=== PATIENT | female | born 1965 | race Two or more races ===

== ENCOUNTER 2017-10-05 08:56 | Emergency (ER) | payer MEDICAID ==
[~2017-10-05] VITALS: Ht 160 cm; Wt 86.2 kg
[2017-10-05 09:02] VITALS: BP 132/84
[2017-10-05] MEDS ORDERED: LIDOCAINE700 M1 TP (09:16)
[2017-10-05] MEDS ORDERED: IBUPROFEN600 MG ORAL (09:16)
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
== END 2017-10-05 10:05 | disposition home or self-care (01) ==
LOC: EMR 09:38
DX: M54.16 Radiculopathy, lumbar region (principal)
CPT/HCPCS: 99283

== ENCOUNTER 2017-11-30 08:47 | Emergency (ER) | payer MEDICAID ==
[~2017-11-30] VITALS: Ht 167.6 cm; Wt 86.2 kg
[~2017-11-30 08:47] MED LIST: IBUPROFEN600 MG ORAL; LIDOCAINE700 M1 TP
[2017-11-30 09:02] VITALS: BP 157/89
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
[2017-11-30] MEDS ORDERED: Ketorolac 60mg Inj IM ONE (09:30)
--- NOTE | 2017-11-30 10:45 | Diagnostic Imaging Report ---
Indication: Lower back pain Technique: CT of the spine utilizing automated exposure control without intravenous contrast. Axial, sagittal and coronal reformats presented. CT dose: Total DLP 578.32 mGycm; CTDI vol 20.23 mGy Comparison: None Findings: There are 5 nonrib-bearing lumbar-type vertebral bodies, assuming 12 paired ribs. There is no evidence of acute fracture. Vertebral body heights are maintained. No evidence of vertebral compression fracture. There is mild degenerative change of the lumbar spine with small disc bulges in the lower lumbar spine. No significant bony central canal stenosis or bony foraminal narrowing. Please note that the central canal, disks and nerve roots are better evaluated on MRI, which can be obtained for more sensitive evaluation as clinically indicated. Abdominal aorta is normal in caliber. A punctate stone is noted in the upper pole of the right kidney. No evidence to suggest hydronephrosis. IMPRESSION: * No evidence of acute fracture or traumatic malalignment. * Overall mild degenerative change of the lumbar spine. * Partially visualized punctate nonobstructing stone in the upper pole the right kidney. The CT scanner at [facility] is accredited by the [employer] and the scans are performed using protocols designed to limit radiation exposure to as low as reasonably achievable to attain images of sufficient resolution adequate for diagnostic evaluation. Facial
[2017-11-30] MEDS ORDERED: IBUPROFEN600 MG ORAL (11:16)
[2017-11-30] MEDS ORDERED: NORCO 5-325 TA1 EACH ORAL (11:16)
[2017-11-30 11:21] VITALS: BP 140/78
--- NOTE | 2017-11-30 12:07 | Diagnostic Imaging Report ---
Indication: Knee pain Technique: XRAY Knee 3v LT Comparison: None Findings: Bone mineralization appears within normal limits. There is no evidence of acute fracture or dislocation. There is very mild degenerative change with some lateral compartment joint space narrowing and small marginal osteophyte. A small quadriceps tendon enthesophyte is also noted. No suprapatellar joint effusion. No radiopaque foreign body. Impression: No evidence of acute fracture or dislocation.
== END 2017-11-30 11:24 | disposition home or self-care (01) ==
LOC: EMR 09:15
DX: M54.16 Radiculopathy, lumbar region (principal); M25.562 Pain in left knee
CPT/HCPCS: 72131; 96372; 99284

== ENCOUNTER 2018-03-05 09:01 | Emergency (ER) | payer MEDICAID ==
[~2018-03-05] VITALS: Ht 162.6 cm; Wt 88.0 kg
[~2018-03-05 09:01] MED LIST changes: +NORCO 5-325 TA1 EACH ORAL
[2018-03-05] MEDS ORDERED: CEPHALEXIN500 M1 ORAL (09:17)
[2018-03-05] MEDS ORDERED: BACTRIM DS TAB1 EAC1 ORAL (09:17)
[2018-03-05] MEDS ORDERED: NAPROXEN500 M2 ORAL (09:17)
[2018-03-05 09:22] VITALS: BP 113/64
[2018-03-05 10:43] VITALS: BP 120/71
--- NOTE | 2018-03-05 12:53 | Emergency Room Report ---
History of Present Illness General Chief Complaint: Skin Rash/Abscess Source: Patient Present Illness HPI 52-year-old female for evaluation. Patient states she has a "cyst" on her neck and on her upper back. Has been there for several months. But states the one on the back got infected recently and is getting bigger. Was seen at a clinic and was placed on antibiotics 2 days ago. States it is not helping. Pain is throbbing, 8 out of 10, nonradiating. Denies fevers or chills. Denies any discharge. No other aggravating relieving factors. Denies any other associated symptoms Allergies: Coded Allergies: No Known Allergies (Unverified , 11/30/17) Patient History Past Medical History: none Past Surgical History: none Pertinent Family History: none Social History: Denies: smoking, alcohol use, drug use Now: No Immunizations: UTD Reviewed Nursing Documentation: PMH: Agreed; PSxH: Agreed Nursing Documentation-PMH Past Medical History: No History, Except For Review of Systems All Other Systems: negative except mentioned in HPI Physical Exam Vital Signs Date Time Temp Pulse Resp B/P (MAP) Pulse Ox O2 Delivery O2 Flow Rate FiO2 03/05/18 09:10 98.2 84 18 115/67 98 Room Air Sp02 EP Interpretation: reviewed, normal General Appearance: no apparent distress, alert, GCS 15, non-toxic Head: normocephalic Eyes: bilateral eye normal inspection, bilateral eye PERRL ENT: normal ENT inspection Neck: normal inspection Respiratory: normal inspection Cardiovascular #1: normal inspection Gastrointestinal: normal inspection Rectal: deferred Genitourinary: normal inspection Musculoskeletal: normal inspection Neurologic: alert, oriented x3, responsive, motor strength/tone normal, sensory intact, speech normal Psychiatric: normal inspection Skin: other - 1cm cyst on posterior neck. nonindurated/ nonerythematous. 4cm abscess on L upper back. induration/erythema. no discharge Lymphatic: normal inspection Procedures Incision and Drainage Incision and Drainage : Consent: Verbal Blade Size: 11 I & D Procedure: betadine prep, sterile drapes applied, sterile dressing applied Wound Location: back - upper back Wound's Depth, Shape: other - abscess Wound Explored: purulent discharged expressed Anesthesia: 1% Lidocaine Splint Applied?: No Sling Applied?: No Patient Tolerated: Well Complications: None Medical Decision Making Diagnostic Impression: Primary Impression: Abscess ER Course Hospital Course 52-year-old F presents to ED with cyst on neck, abscess on uppper back Clinical course Patient placed on stretcher. After initial history, physical exam reveals middle-aged female in no acute distress. On exam there is a 1 cm cyst on the posterior neck. Nonindurated, nonerythematous. No fluctuance. There is a larger infected abscess on the left upper back. aproximately 4 cm. + erythema and induration. Discussed findings with patient. Cyst on the neck has been there for months, not infected. Can be addressed as outpatient. We will drain the abscess on her upper back however. Placed in prone position. Sterile dressing applied. No signs of lidocaine. Using scalpel I made an incision and using forceps I was able to break up loculations and purulent discharge was expressed. Patient tolerated procedure without complication. Pressure dressing applied. Explained to patient that she should continue her antibiotics. Follow-up with PMD. I will provide her with clinic referrals Diagnosis - abscess Stable and discharged to home. continue abx as prescribed. warm compresses. wound Care instructions given. Followup with PMD. Return to ED if any signs of infection develop Last Vital Signs Date Time Temp Pulse Resp B/P (MAP) Pulse Ox O2 Delivery O2 Flow Rate FiO2 03/05/18 10:43 98.3 82 18 120/71 99 Room Air Status: improved Disposition: HOME, SELF-CARE Condition: Stable Referrals: NON PHYSICIAN (PCP) [facility] Patient Instructions: Abscess Additional Instructions: continue antibiotics as directed. warm compresses. followup with PMD. Tono Oconnell MD Mar 05, 2018 12:53
== END 2018-03-05 10:46 | disposition home or self-care (01) ==
LOC: EMR 09:58
DX: L02.212 Cutaneous abscess of back [any part, except buttock and flank] (principal)
CPT/HCPCS: 10060; 99283

== ENCOUNTER 2018-03-19 19:18 | Emergency (ER) | payer MEDICAID ==
[~2018-03-19] VITALS: Ht 167.6 cm; Wt 86.2 kg
[~2018-03-19 19:18] MED LIST changes: +BACTRIM DS TAB1 EAC1 ORAL; +CEPHALEXIN500 M1 ORAL; +NAPROXEN500 M2 ORAL
[2018-03-19 19:31] VITALS: BP 116/73
[2018-03-19] MEDS ORDERED: Norco 5mg/325mg tab ORAL ONE (19:45)
[2018-03-19] MEDS ORDERED: Methocarbamol 500mg tab ORAL ONE (19:45)
--- NOTE | 2018-03-19 19:46 | Emergency Room Report ---
History of Present Illness General Chief Complaint: Lower Back Pain or Injury Source: Patient Present Illness HPI 52-year-old female patient presents the ER complaining of low back pain since today. Reports pain is radiating down her left side to her left knee. Reports history of similar symptoms in the past, states has had pain symptoms like this for the past year. Patient previously seen in the ER for similar symptoms. Reports has had imaging done previously at that time, states has not had MRI. Reports followed up with primary care provider was given Tylenol and ibuprofen. Reports pain symptoms worsened today. Denies acute injury or trauma. Denies bowel or bladder incontinence. Denies fever, chest pain, shortness of breath, abdominal pain. Denies history of spine surgery. Denies dysuria, hematuria. Denies vaginal discharge. was driven to the ER by her son. Allergies: Coded Allergies: No Known Allergies (Unverified , 11/30/17) Patient History Past Medical History: see triage record Last Menstrual Period: 02/22/18 Reviewed Nursing Documentation: PMH: Agreed; PSxH: Agreed Nursing Documentation-PMH Past Medical History: No History, Except For Review of Systems All Other Systems: negative except mentioned in HPI Physical Exam Vital Signs Date Time Temp Pulse Resp B/P (MAP) Pulse Ox O2 Delivery O2 Flow Rate FiO2 03/19/18 19:29 98.6 91 23 116/73 96 Room Air Sp02 EP Interpretation: reviewed, normal General Appearance: well appearing, no apparent distress, alert, GCS 15, non- toxic Head: normocephalic, atraumatic Eyes: bilateral eye normal inspection, bilateral eye PERRL ENT: hearing grossly normal, normal pharynx, no angioedema, normal voice, uvula midline, moist mucus membranes Neck: full range of motion Respiratory: lungs clear, normal breath sounds, no rhonchi, no respiratory distress, no accessory muscle use, no wheezing, speaking full sentences Cardiovascular #1: regular rate, rhythm, no edema Gastrointestinal: non tender, soft, no mass, non-distended, no guarding, no rebound Genitourinary: no CVA tenderness Musculoskeletal: back normal, digits/nails normal, gait/station normal, normal range of motion, tender - Lumbosacral Neurologic: alert, oriented x3, responsive, motor strength/tone normal, sensory intact, other - Straight leg left positive Psychiatric: mood/affect normal Skin: no rash Medical Decision Making PA Attestation Dr. Oconnell is my supervising Physician whom patient management has been discussed with. Diagnostic Impression: Primary Impression: Acute exacerbation of chronic low back pain ER Course Pt presents to ED c/o back pain. DDX considered but are not limited to sprain, strain, cauda equina, epidural abscess, AAA, spinal cord compression, kidney stones, chronic pain. Low suspicion for cauda equina, no bowel or bladder incontinence or retention. No fever, nontoxic appearing, no radiation of pain, low suspicion for epidural mass. No abdominal pain, no blood pressure elevation, nontoxic appearing, low suspicion for AAA. VITAL SIGNS are WNL, patient is afebrile Ordered pain medication. ER COURSE: [place] pain medication provided. CURES reviewed. Informed patient would not discharge her home with opioid pain medication, stronger pain medication must come from primary care provider who she is currently receiving treatment for recurrent back pain symptoms. No recent injury or trauma, does not require imaging at this time. Reviewed previous imaging showing degenerative changes and bulging discs, likely causing pain symptoms. Continue taking Tylenol and ibuprofen for relief of pain symptoms. Followup with pain management and/or PT. Request referral from PCP. Followup with PCP for further MRI and/or CT imaging as needed. ER precautions given. DISCHARGE: -Rx provided for Lidocaine patch -Rx provided for Robaxin. SE may cause drowsiness, do not take prior to drinking , driving, or operating heavy machinery. At this time pt. is stable for d/c to home. At this time patient is resting comfortably, in no acute distress, nontoxic appearing, smiling and talking without difficulty. Will provide printed patient care instructions, and any necessary prescriptions. Patient instructed to follow with primary care provider for further treatment and referral as needed. Care plan and follow up instructions have been discussed with the patient prior to discharge. Patient reports understanding and agreement to treatment plan. Patient questions asked and answered. ER precautions given, patient instructed to return to ER immediately for any new or worsening of symptoms. - Please note that this Emergency Department Report was dictated using [email or web address] technology software, occasionally this can lead to erroneous entry secondary to interpretation by the dictation equipment. Last Vital Signs Date Time Temp Pulse Resp B/P (MAP) Pulse Ox O2 Delivery O2 Flow Rate FiO2 03/19/18 19:29 98.6 91 23 116/73 96 Room Air Status: improved Disposition: HOME, SELF-CARE Condition: Stable Scripts Methocarbamol* (ROBAXIN*) 500 Mg Tablet 500 MG PO TID, #21 TAB 0 Refills Prov: Ashkan Ford 03/19/18 Lidocaine (Lidocaine) 1 Each Adh..patch 5 % TP DAILY for 7 Days, #7 PATCH Prov: Ashkan Ford 03/19/18 Patient Instructions: Back Pain, Adult, Chronic Back Pain Additional Instructions: Patient instructed to follow up with primary care provider 3-5 and discuss further referral to ortho/PT/pain management and MRI imaging at that time. Discuss need for stronger pain medication for acute exacerbation of chronic pain. Patient instructed on rest, ice and heat. Do not take muscle relaxant prior to drinking, driving, or operating heavy machinery. Take medications as directed. Patient questions asked and answered. ER precautions given, patient instructed to return to ER immediately for any new or worsening of symptoms. [facility] [address] [facility] [address] [facility], [id number] [email or web address] Ashkan Ford Mar 19, 2018 19:46
[2018-03-19] MEDS ORDERED: LIDOCAINE700 M1 TP (19:54)
[2018-03-19] MEDS ORDERED: ROBAXIN500 MG PO (19:54)
[2018-03-19 20:12] VITALS: BP 114/72
== END 2018-03-19 20:12 | disposition home or self-care (01) ==
LOC: EMR 19:53
DX: M54.5 Low back pain (principal); G89.29 Other chronic pain
CPT/HCPCS: 99282

== ENCOUNTER 2018-06-24 08:38 | Emergency (ER) | payer MEDICAID ==
[~2018-06-24] VITALS: Ht 167.6 cm; Wt 86.2 kg
[~2018-06-24 08:38] MED LIST changes: +ROBAXIN500 MG PO
[2018-06-24] MEDS ORDERED: NKM (08:46)
--- NOTE | 2018-06-24 08:57 | NUR ---
ED Nurse Note: PT WALKED IN TO ER TODAY FROM HOME. AOX4. PT C/O LOWER BACK PAIN AND HEADACHE, PAIN 8/10 X 3 WEEKS AGO. PT DENIES ANY RECENT INJURY OR TRAUMA. PT DENIES NUMBNESS OR TINGLING. PT DENIES DIZZINESS. GAIT STEADY IN ER.
[2018-06-24 08:58] VITALS: BP 126/76
--- NOTE | 2018-06-24 09:52 | Emergency Room Report ---
History of Present Illness General Chief Complaint: Headache Source: Patient Present Illness HPI This is patient states that she has had low back pain for the past 3 weeks. She states that this is the same back pain that she usually gets. She has been evaluated and undergone a CT of her low back. She primarily sees the emergency department. However, she states that she is going to see her primary care physician on the of this month. She states she is out of her pain medications that she received here in the emergency department. She states she still continues to have pain. She states at times it radiates down her left leg. She he denies weakness. She denies tingling or numbness. She denies loss of bowel or bladder control. She states she is very uncomfortable. Although there is some report of a headache in the medical record, the patient did not complain of this to me. The patient has no other complaints. Allergies: Coded Allergies: No Known Allergies (Unverified , 06/24/18) Patient History Past Medical History: see triage record, other - anemia Social History: Denies: smoking, alcohol use, drug use Last Menstrual Period: menopause Reviewed Nursing Documentation: PMH: Agreed; PSxH: Agreed Nursing Documentation-PMH Past Medical History: No History, Except For Review of Systems All Other Systems: negative except mentioned in HPI Physical Exam Vital Signs Date Time Temp Pulse Resp B/P (MAP) Pulse Ox O2 Delivery O2 Flow Rate FiO2 06/24/18 08:41 99.0 81 16 131/81 94 Room Air Sp02 EP Interpretation: reviewed, normal General Appearance: no apparent distress, alert, GCS 15, non-toxic Head: normocephalic, atraumatic Eyes: bilateral eye normal inspection, bilateral eye PERRL ENT: hearing grossly normal, normal pharynx, no angioedema, normal voice Respiratory: chest non-tender, lungs clear, normal breath sounds, no respiratory distress, no retraction, no accessory muscle use, speaking full sentences Cardiovascular #1: regular rate, rhythm, no edema Rectal: deferred Musculoskeletal: gait/station normal, normal range of motion, tender - TTP along the paraspinal m. of the lumbar spine. Neurologic: alert, oriented x3, responsive, motor strength/tone normal, sensory intact, speech normal Psychiatric: judgement/insight normal, memory normal, mood/affect normal, no suicidal/homicidal ideation Skin: normal color, no rash, warm/dry, well hydrated Medical Decision Making Diagnostic Impression: Primary Impression: Lumbar back pain with radiculopathy affecting left lower extremity ER Course This patient has a clinical presentation consistent with mechanical back pain. There are no red flags on physical exam. The patient denies any concerning features such as trauma, fevers, night sweats, history of malignancy, pain worse at night, IV drug abuse, urinary/fecal incontinence or retention, focal weakness or change in sensation, or refractory pain. Given these pertinent negatives in the history and physical exam an emergent cause of the back pain such as epidural abscess, metastasis to bone, cauda equina syndrome, and fracture is less likely. I also doubt emergent cardiovascular cause of back pain such as aortic dissection a ruptured abdominal aortic aneurysm given patient with equal pulses in all 4 extremities with no diastolic murmur or pulsatile abdominal mass. The patient was counseled that, though unlikely, the possibility of an emergent cause of back pain may still be present and that the patient should return immediately if symptoms persist or worsen. The symptoms are reproducible with movement. Patient had a benign evaluation and neurologic examination. No emergency etiology was identified. Last Vital Signs Date Time Temp Pulse Resp B/P (MAP) Pulse Ox O2 Delivery O2 Flow Rate FiO2 06/24/18 08:58 98.7 76 18 126/76 98 Room Air Status: improved Disposition: HOME, SELF-CARE Condition: Improved Farideh Remy DO Jun 24, 2018 09:52
[2018-06-24] MEDS ORDERED: ACETAMINOPHEN-1 EAC1 ORAL (09:55)
[2018-06-24] MEDS ORDERED: IBUPROFEN800 MG ORAL (09:55)
[2018-06-24] MEDS ORDERED: GABAPENTIN300 MG ORAL (09:55)
[2018-06-24] MEDS ORDERED: CYCLOBENZAPRINE10 MG ORAL (09:55)
[2018-06-24] MEDS ORDERED: Cyclobenzaprine 10mg Tab ORAL ONE (10:00)
[2018-06-24] MEDS ORDERED: Ketorolac 60mg Inj IM ONE (10:00)
[2018-06-24 10:04] VITALS: BP 126/76
--- NOTE | 2018-06-24 10:05 | NUR ---
ER DISCHARGE NOTE: Patient is cleared to be discharged per ERMD, pt is aox4, on room air, with stable vital signs. pt was given dc and prescription instructions, pt was able to verbalize understanding, pt id band removed. pt is able to ambulate with steady gait. pt took all belongings.
== END 2018-06-24 10:06 | disposition home or self-care (01) ==
LOC: EMR 09:55
DX: M54.5 Low back pain (principal); M54.16 Radiculopathy, lumbar region
CPT/HCPCS: 96372; 99283

== ENCOUNTER 2018-08-25 08:24 | Emergency (ER) | payer MEDICAID ==
[~2018-08-25] VITALS: Ht 167.6 cm; Wt 86.2 kg
[~2018-08-25 08:24] MED LIST changes: +ACETAMINOPHEN-1 EAC1 ORAL; +CYCLOBENZAPRINE10 MG ORAL; +GABAPENTIN300 MG ORAL; +IBUPROFEN800 MG ORAL; +NKM
[2018-08-25 08:34] VITALS: BP 124/78
[2018-08-25 09:46] VITALS: BP 124/78
--- NOTE | 2018-08-25 11:47 | Emergency Room Report ---
History of Present Illness General Chief Complaint: Pain Source: Patient Present Illness HPI Patient presents with complaints of lower back pain mainly localized to the left lower back however patient also complains of bilateral back pain at times she also reports that there is radiation From the left lower back into the left lateral leg She reports intermittently her right leg also feels weak Denies any saddle paresthesia patient reports a remote history of a fall with imaging previously She reports that she has discussed this with her primary physician and requesting MRI however has not been successful patient appears to have also had a hysterectomy Denies any vomiting or diarrhea denies any fevers or chills denies any focal weakness at this time Allergies: Coded Allergies: No Known Allergies (Unverified , 06/24/18) Patient History Past Medical History: see triage record Pertinent Family History: none Now: No Reviewed Nursing Documentation: PMH: Agreed; PSxH: Agreed Nursing Documentation-PMH Past Medical History: No Stated History Review of Systems All Other Systems: negative except mentioned in HPI Physical Exam Vital Signs Date Time Temp Pulse Resp B/P (MAP) Pulse Ox O2 Delivery O2 Flow Rate FiO2 08/25/18 08:27 98.2 90 19 124/78 (93) 96 Room Air Sp02 EP Interpretation: reviewed, normal General Appearance: well appearing, no apparent distress Head: normocephalic, atraumatic Eyes: bilateral eye PERRL, bilateral eye EOMI ENT: hearing grossly normal, normal pharynx, TMs + canals normal, uvula midline Neck: full range of motion, supple, no meningismus, no bony tend Respiratory: lungs clear, normal breath sounds, no rhonchi, no respiratory distress, no retraction, no accessory muscle use Cardiovascular #1: normal peripheral pulses, regular rate, rhythm, no edema, no gallop, no JVD, no murmur Gastrointestinal: normal bowel sounds, non tender, soft, no mass, no organomegaly, non-distended, no guarding, no hernia, no pulsatile mass, no rebound Genitourinary: no CVA tenderness Musculoskeletal: other - Discomfort on palpation of the left posterior superior iliac crest region no midline step-off flexion-extension of both feet intact sensory intact Neurologic: oriented x3, responsive, 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 Additional Impression: sciatica ER Course Multiple differentials including but not limited to neurological, neurosurgical , muscular skeletal pathology entertained Patient does not show signs of cauda equina or other emergent pathology at this time She is requesting if we can provide her referral for MRI this was Reemphasized to her primary physician through the discharge papers And patient requires improved outpatient care Last Vital Signs Date Time Temp Pulse Resp B/P (MAP) Pulse Ox O2 Delivery O2 Flow Rate FiO2 08/25/18 09:46 98.2 90 19 124/78 96 Room Air Status: unchanged Disposition: HOME, SELF-CARE Condition: Stable Departure Forms: Return to Work Return to Work in (Days): 2 Return to Work Date: Aug 27, 2018 Patient Instructions: Sciatica, [id number], Lumbosacral Radiculopathy Additional Instructions: Patient will benefit from outpatient MRI. Patient reports ongoing progressive worsening of her symptoms, please provide patient with referral through your services for neurology follow-up including MRI examination. Patient is provided with the discharge instructions notified to follow up with primary doctor in the next 2-3 days otherwise return to the er with any worsening symptoms. Please note that this report is being documented using [employer] technology. This can lead to erroneous entry secondary to incorrect interpretation by the dictating instrument. Kentrell Ying DO Aug 25, 2018 11:47
== END 2018-08-25 09:48 | disposition home or self-care (01) ==
LOC: EMR 08:35
DX: M54.42 Lumbago with sciatica, left side (principal); M54.16 Radiculopathy, lumbar region
CPT/HCPCS: 99282

== ENCOUNTER 2019-03-14 10:49 | Emergency (ER) | payer MEDICAID ==
[~2019-03-14] VITALS: Ht 167.6 cm; Wt 86.2 kg
--- NOTE | 2019-03-14 11:00 | NUR ---
ED Nurse Note: PT walked in to ED for C/O pain to back and bilateral knee x 6 days. pt denies any trauma or injury.
[2019-03-14] MEDS ORDERED: Ketorolac 30mg Inj IM ONE (12:45)
--- NOTE | 2019-03-14 12:54 | Emergency Room Report ---
History of Present Illness General Chief Complaint: Lower Extremity Injury Source: Patient Present Illness HPI 53-year-old female presents to the emergency department complaining of 8 out of 10 severity low back pain with radiation down the right posterior thigh, as well as anterior bilateral knee pain x6 days. Patient reports history of injury in 2005 and states she has had chronic back pain ever since she reports that intermittently she will have episodes of exacerbation of her pain and required to take pain medication. Pt. reports that there is no change in character of her pain. She reports her PCP had Imaging done but never gave her the results. Patient reports last time she required stronger pain meds was earlier last year. Patient denies new trauma or fall she denies appreciable strenuous activities. Denies numbness tingling or loss of sensation or gross motor movements of the extremities, incontinence of bowel or bladder. Denies CP , Palpitations, LOC, AMS, dizziness, Changes in Vision, weakness or a sudden severe headache. She denies recent spinal procedures or history of cancer. Allergies: Coded Allergies: No Known Allergies (Unverified , 06/24/18) Patient History Past Medical History: see triage record Past Surgical History: none Pertinent Family History: none Last Menstrual Period: 3 YEARS Now: No Reviewed Nursing Documentation: PMH: Agreed; PSxH: Agreed Nursing Documentation-PMH Past Medical History: No History, Except For Review of Systems All Other Systems: negative except mentioned in HPI Physical Exam Vital Signs Date Time Temp Pulse Resp B/P (MAP) Pulse Ox O2 Delivery O2 Flow Rate FiO2 03/14/19 10:56 97.5 78 16 125/89 (101) 94 Room Air Sp02 EP Interpretation: reviewed, normal General Appearance: no apparent distress, alert, GCS 15, non-toxic Head: normocephalic, atraumatic Eyes: bilateral eye normal inspection, bilateral eye PERRL ENT: hearing grossly normal, normal voice Neck: full range of motion Respiratory: lungs clear, normal breath sounds, speaking full sentences Cardiovascular #1: regular rate, rhythm Genitourinary: normal inspection, no CVA tenderness Musculoskeletal: normal range of motion, gait/station normal, tender - TTP to the bilateral paraspinal musculature in the lumbar spine and in the right upper thoracic area. No midline spinous process ttp. No palpable step-offs or obvious deformities. , other - She is ambulatory without assistance. Neurologic: alert, motor strength/tone normal, distal neuro normal, oriented x3 , sensory intact, responsive, speech normal, no focal defects Psychiatric: judgement/insight normal Medical Decision Making PA Attestation Dr. Bradley is my supervising Physician whom patient management has been discussed with. Diagnostic Impression: Primary Impression: Radicular low back pain ER Course 53-year-old female presents to the emergency department complaining of 8 out of 10 severity low back pain with radiation down the right posterior thigh, as well as anterior bilateral knee pain x6 days. Patient reports history of injury in 2005 and states she has had chronic back pain ever since she reports that intermittently she will have episodes of exacerbation of her pain and required to take pain medication. Pt. reports that there is no change in character of her pain. She reports her PCP had Imaging done but never gave her the results. Patient reports last time she required stronger pain meds was earlier last year. Patient denies new trauma or fall she denies appreciable strenuous activities. Denies numbness tingling or loss of sensation or gross motor movements of the extremities, incontinence of bowel or bladder. Denies CP , Palpitations, LOC, AMS, dizziness, Changes in Vision, weakness or a sudden severe headache. She denies recent spinal procedures or history of cancer. Ddx considered: epidural abscess, fracture, sprain/strain, meningitis, spinal chord injury, sciatica, cauda equina, Pyelonephritis, renal calculi just to name a few. Vital signs reviewed and are WNL during ED visit. Pt. is afebrile with no signs of infection No new symptoms, and denies recent trauma. No saddle anesthesia noted, Pt. denies incontinence Neurovascular is intact ROM is limited due to pain * Mild Tenderness to palpation to paraspinal muscles of the lower back without midline tenderness. ORDERS: none warranted at this time. INTERVENTIONS: - 30mg IM Toradol D/W Pt. that for further pain management is it recommended to consult PCP or a Chronic Pain management doctor. A provider who can safely prescribe controlled substances with close follow up. DISCHARGE: At this time pt. is stable for d/c to home. Will provide printed patient care instructions, and any necessary prescriptions. Care plan and follow up instructions have been discussed with the patient prior to discharge. Last Vital Signs Date Time Temp Pulse Resp B/P (MAP) Pulse Ox O2 Delivery O2 Flow Rate FiO2 03/14/19 10:56 97.5 78 16 125/89 (101) 94 Room Air Disposition: HOME, SELF-CARE Condition: Stable Scripts Lidocaine Patch* (Lidoderm Patch*) 1 Each Adh..patch 1 PATCH TOPIC DAILY, #30 PATCH 0 Refills Patch(es) may remain in place for up to 12 hours in any 24-hour period. Prov: Lanny Garg 03/14/19 Tramadol Hcl* (ULTRAM*) 50 Mg Tablet 50 MG ORAL Q6H PRN for For Pain, #12 TAB 0 Refills Prov: Lanny Garg 03/14/19 Patient Instructions: Chronic Back Pain, Knee Pain, [id number] Additional Instructions: Take medications as directed. Follow up with an SPINAL AERONAUTICAL ENGINEERING TEACHER REFERRAL by your Primary care Doctor within 3-5 days, even if your symptoms have resolved. If symptoms persist MRI may be required at the discretion of your PCP or Ortho Specialist. --Please review list of primary care clinics, if you do not already have a primary care provider who can give you an Orthopedic Referral. Return sooner to ED if new symptoms occur, or current symptoms become worse. Do not drink alcohol, drive, or operate heavy machinery while taking Tramadol as this may cause drowsiness. - Please note that this Emergency Department Report was dictated using [employer] pouring supervisor technology software, occasionally this can lead to erroneous entry secondary to interpretation by the dictation equipment. Lanny Garg Mar 14, 2019 12:54
[2019-03-14] MEDS ORDERED: LIDODERM700 M1 TOPIC (12:56)
[2019-03-14] MEDS ORDERED: TRAMADOL HCL50 MG ORAL (12:56)
--- NOTE | 2019-03-14 13:09 | NUR ---
ER DISCHARGE NOTE: Patient is cleared to be discharged per ERMD, pt is aox4, on room air, with stable vital signs. pt was given dc and prescription instructions, pt was able to verbalize understanding, pt is able to ambulate with steady gait. pt took all belongings.
[2019-03-14 13:10] VITALS: BP 125/89
== END 2019-03-14 13:10 | disposition home or self-care (01) ==
LOC: EMR 12:00
DX: M54.5 Low back pain (principal); M79.651 Pain in right thigh; M25.562 Pain in left knee; M25.561 Pain in right knee
CPT/HCPCS: 96372; J1885; Z7502; 99283

== ENCOUNTER 2020-03-01 05:33 | Inpatient (IN) | payer MEDICAID ==
[2020-03-01] VITALS (7 sets, daily range): BP systolic 106–140; BP diastolic 60–78
[~2020-03-01] VITALS: Ht 167.6 cm; Wt 86.2 kg
[~2020-03-01 05:33] MED LIST changes: +LIDODERM700 M1 TOPIC; +TRAMADOL HCL50 MG ORAL
--- NOTE | 2020-03-01 05:44 | NUR ---
ED Nurse Note: Pt walked into ED from home c/o increased SOB with cough, fever for the past 6 days. Pt has loss of taste. Pt is AAOx4, tachypneic RR 28-30 on RA sats 86%, placed pt on 4L nc now sating 99%. Pt currently febrile in traige 102 oral, tachycardic 110s. Pt states she has not been COVID tested.
--- NOTE | 2020-03-01 06:04 | NUR ---
ED Nurse Note: blood and urine sent to lab
--- NOTE | 2020-03-01 06:08 | Emergency Room Report ---
History of Present Illness General Chief Complaint: Flu Like Symptoms Source: Patient Present Illness HPI Disclaimer: Please note that this report is being documented using [employer] technology. This can lead to erroneous entry secondary to incorrect interpretation by the dictating instrument. HPI: 54-year-old female presents for evaluation of shortness of breath and fever. Symptoms present 6 days. She reports nonproductive cough, body aches, fatigue fevers. Has been using Tylenol and Motrin with some effect. She is now diaphoretic and short of breath. She reports chest pain with cough only. Denies nausea or vomiting. Denies diarrhea. Denies nasal congestion or sore throat. No testing for COVID-19. Arrives hypoxic and tachycardic. Does not use inhalers and denies history of asthma or COPD. PMH: Denied PSH: Hysterectomy Allergies: Denied Social Hx: Non-smoker Allergies: Coded Allergies: No Known Allergies (Unverified , 06/24/18) COVID-19 Screening Contact w/high risk pt: No Experienced COVID-19 symptoms?: Yes COVID-19 Testing performed DEVOPS ARCHITECT: No Patient History Last Menstrual Period: n/a Nursing Documentation-PMH Past Medical History: No History, Except For Review of Systems All Other Systems: negative except mentioned in HPI Physical Exam Vital Signs Date Time Temp Pulse Resp B/P (MAP) Pulse Ox O2 Delivery O2 Flow Rate FiO2 03/01/20 05:39 102.0 118 18 127/73 (91) 88 Room Air General: Awake and alert, ill-appearing, febrile, diaphoretic HEENT: NC/AT. EOMI. Cardiovascular: Tachycardic S1 and S2 normal. No murmur appreciated Resp: Tachypnea. Intermittent cough. No wheezing. 86% room air Abdomen: Abdomen is soft, nondistended. Nontender Skin: Intact. No abrasions, laceration or rash over the exposed skin. Diaphoretic MSK: Normal tone and bulk. Moving all extremities. No obvious deformity. Neuro: Awake and alert. Mentating appropriately. Procedures Critical Care Time Critical Care Time Total critical care time: Approximately 45 minutes Due to a high probability of clinically significant, life threatening deterioration, the patient required the highest level of preparedness to intervene emergently and I personally spent this critical care time directly and personally managing the patient. This critical care time included obtaining a history, examining the patient, pulse oximetry, ordering and reviewing studies, ordering treatments, evaluating response to treatment and updating management plan as needed, frequent reassessment and discussion with other providers as well as arranging for ultimate disposition. This critical to care time was performed to assess and manage the high probability of life-threatening dete rioration that could result in multiorgan failure. This critical care time is separate from the separately billable procedures and treating other patients. Medical Decision Making Diagnostic Impression: Primary Impression: COVID-19 Additional Impressions: Pneumonia UTI (urinary tract infection) Sepsis ER Course Is a 54-year-old female presenting for evaluation of shortness of breath and flulike illness for the past 5 days. Concern for COVID-19, influenza, pneumonia, bronchitis, electrolyte abnormality, dehydration, ACS among others. Patient arrives tachypneic, tachycardic and hypoxic saturating 86% on room air during my evaluation. Now on 4L NC. Rapid test is returned positive for COVID- 19. Patient given Decadron. Chest x-ray shows bilateral hazy infiltrates consistent with COVID-19 pneumonia. Treated with ceftriaxone azithromycin. Blood culture sent. Patient receiving 30 cc/kg IV fluid bolus. Urinalysis concerning for urinary tract infection. Patient received ceftriaxone. Lactate within normal limits. Admitted to panel physician, Dr. Botello Sepsis reevaluation: I, Dr. Jovon Rea, reevaluated the patient Capillary refill: Less than 2 seconds MAP: 92 Heart rate: 118 Respiratory rate: 30 Initial Lactate: 1.3 Repeat Lactate: [] Pressors: Not indicated at this time No signs of fluid overload Laboratory Tests Test 03/01/20 05:50 White Blood Count 6.7 K/UL (4.8-10.8) Red Blood Count 4.67 M/UL (4.20-5.40) Hemoglobin 13.8 G/DL (12.0-16.0) Hematocrit 39.0 % (37.0-47.0) Mean Corpuscular Volume 83 FL (80-99) Mean Corpuscular Hemoglobin 29.5 PG (27.0-31.0) Mean Corpuscular Hemoglobin Concent 35.3 G/DL (32.0-36.0) Red Cell Distribution Width 14.0 % (11.6-14.8) Platelet Count 252 K/UL (150-450) Mean Platelet Volume 8.0 FL (6.5-10.1) Neutrophils (%) (Auto) 80.6 % (45.0-75.0) H Lymphocytes (%) (Auto) 14.3 % (20.0-45.0) L Monocytes (%) (Auto) 4.9 % (1.0-10.0) Eosinophils (%) (Auto) 0.0 % (0.0-3.0) Basophils (%) (Auto) 0.2 % (0.0-2.0) Prothrombin Time 11.4 SEC (9.30-11.50) Prothrombin Time INR 1.0 (0.9-1.1) Activated Partial Thromboplast Time 31 SEC (23-33) D-Dimer 0.47 mg/L FEU (0.00-0.49) Urine Color Yellow Urine Appearance Slightly cloudy Urine pH 7 (4.5-8.0) Urine Specific [place] 1.010 (1.005-1.035) Urine Protein 3+ (NEGATIVE) H Urine Glucose (UA) Negative (NEGATIVE) Urine Ketones 3+ (NEGATIVE) H Urine Blood 3+ (NEGATIVE) H Urine Nitrite Negative (NEGATIVE) Urine Bilirubin Negative (NEGATIVE) Urine Urobilinogen Normal MG/DL (0.0-1.0) Urine Leukocyte Esterase 1+ (NEGATIVE) H Urine RBC 5-10 /HPF (0 - 2) H Urine WBC 10-15 /HPF (0 - 2) H Urine Squamous Epithelial Cells Moderate /LPF (NONE/OCC) H Urine Bacteria Many /HPF (NONE) H Sodium Level 132 MMOL/L (136-145) L Potassium Level 3.6 MMOL/L (3.5-5.1) Chloride Level 98 MMOL/L (98-107) Carbon Dioxide Level 28 MMOL/L (21-32) Anion Gap 6 mmol/L (5-15) Blood Urea Nitrogen 9 mg/dL (7-18) Creatinine 0.7 MG/DL (0.55-1.30) Estimated Glomerular Filtration Rate > 60 mL/min (>60) Glucose Level 147 MG/DL (74-106) H Lactic Acid Level 1.30 mmol/L (0.4-2.0) Calcium Level 8.0 MG/DL (8.5-10.1) L Phosphorus Level 2.6 MG/DL (2.5-4.9) Magnesium Level 1.8 MG/DL (1.8-2.4) Ferritin 231 NG/ML (8-388) Total Bilirubin 0.5 MG/DL (0.2-1.0) Aspartate Amino Transferase (AST) 40 U/L (15-37) H Alanine Aminotransferase (ALT) 38 U/L (12-78) Alkaline Phosphatase 82 U/L (46-116) Lactate Dehydrogenase 391 U/L (81-234) H Total Creatine Kinase 162 U/L (26-308) Creatine Kinase MB < 0.5 NG/ML (0.0-3.6) Creatine Kinase MB Relative Index 0.3 Troponin I 0.000 ng/mL (0.000-0.056) C-Reactive Protein, Quantitative 19.8 mg/dL (0.00-0.90) H Pro-B-Type Natriuretic Peptide 23 pg/mL (0-125) Total Protein 8.1 G/DL (6.4-8.2) Albumin 3.1 G/DL (3.4-5.0) L Globulin 5.0 g/dL Albumin/Globulin Ratio 0.6 (1.0-2.7) L Lipase 124 U/L (73-393) Microbiology Date/Time Source Procedure Growth Status 03/01/20 05:50 Nasal Nares - Final Complete 03/01/20 05:50 Nasal Nares - Final Complete 03/01/20 05:50 Nasopharynx SARS-CoV-2 RdRp Gene Assay - Final Complete EKG Diagnostic Results Troponin ordered: Yes When was troponin ordered?: Mar 01, 2020 EKG Time: 06:20 Rate: tachycardiac Rhythm: NSR ST Segments: no acute changes Other Impression Sinus tachycardia, normal axis, normal intervals, QTC [address] segment changes. Rhythm Strip Diag. Results Rhythm Strip Time: 06:20 EP Interpretation: yes Rate: 106 Rhythm: NSR, no PVC's, no ectopy Chest X-Ray Diagnostic Results Chest X-Ray Diagnostic Results : Chest X-Ray Ordered: Yes # of Views/Limited/Complete: 1 View Indication: Shortness of Breath EP Interpretation: Yes Electronically Signed by: Electronically signed by Dr. Jovon Rea MD Last Vital Signs Date Time Temp Pulse Resp B/P (MAP) Pulse Ox O2 Delivery O2 Flow Rate FiO2 03/01/20 05:39 102.0 118 18 127/73 (91) 88 Room Air Disposition: ADMITTED INPATIENT Condition: Serious Referrals: NON PHYSICIAN (PCP) Jovon Rea MD Mar 01, 2020 06:08
--- NOTE | 2020-03-01 06:12 | NUR ---
ED Nurse Note: COVID swab sent to lab
[2020-03-01] MEDS ORDERED: dexAMETHasone 10mg/ml Inj IV ONE (06:15)
[2020-03-01] MEDS ORDERED: Acetaminophen 500mg (ES) tab ORAL ONE (06:15)
--- NOTE | 2020-03-01 06:23 | NUR ---
ED Nurse Note: flu swab sent to lab
[2020-03-01 06:25] LABS: BASOPHILS % (AUTO) 0.2 % (0.0-2.0); HEMOGLOBIN 13.8 G/DL (12.0-16.0); LYMPHOCYTES % (AUTO) 14.3 % (20.0-45.0); MEAN CORPUSCULAR VOLUME 83 FL (80-99); MONOCYTES % (AUTO) 4.9 % (1.0-10.0); NEUTROPHILS % (AUTO) 80.6 % (45.0-75.0); PLATELET COUNT 252 K/UL (150-450); RED BLOOD COUNT 4.67 M/UL (4.20-5.40); WHITE BLOOD COUNT 6.7 K/UL (4.8-10.8)
--- NOTE | 2020-03-01 06:25 | NUR ---
ED Nurse Note: soil conservation technician at bedside
[2020-03-01 06:35] LABS: ANION GAP 6 mmol/L (5-15); BLOOD UREA NITROGEN 9 mg/dL (7-18); CARBON DIOXIDE 28 MMOL/L (21-32); CHLORIDE 98 MMOL/L (98-107); CREATININE 0.7 MG/DL (0.55-1.30); POTASSIUM 3.6 MMOL/L (3.5-5.1); SODIUM 132 MMOL/L (136-145)
[2020-03-01] MEDS ORDERED: Azithromycin 500 MG in NS 275 ML IVPB ONE (06:45)
[2020-03-01] MEDS ORDERED: cefTRIAXone 1 GM in NS 55 ML IV ONE (06:45)
[2020-03-01] MEDS ORDERED: Sodium Chloride 2,600 ML IVLG ONE (06:45)
[2020-03-01 06:46] LABS: ALANINE AMINOTRANSFERASE 38 U/L (12-78); ALBUMIN 3.1 G/DL (3.4-5.0); ALBUMIN/GLOBULIN RATIO 0.6 (1.0-2.7); ALKALINE PHOSPHATASE 82 U/L (46-116); ASPARTATE AMINO TRANSFERASE 40 U/L (15-37); BILIRUBIN,TOTAL 0.5 MG/DL (0.2-1.0); CKMB < 0.5 NG/ML (0.0-3.6); CREATINE KINASE 162 U/L (26-308); FERRITIN 231 NG/ML (8-388); LACTATE DEHYDROGENASE 391 U/L (81-234); PHOSPHORUS 2.6 MG/DL (2.5-4.9)
[2020-03-01 06:47] LABS: BILIRUBIN, URINE NEGATIVE (NEGATIVE); GLUCOSE, URINE (UA) NEGATIVE (NEGATIVE); KETONES,URINE 3+ (NEGATIVE); LEUKOCYTE ESTERASE ,URINE 1+ (NEGATIVE); NITRITE,URINE NEGATIVE (NEGATIVE); PH,URINE 7 (4.5-8.0); PROTEIN,URINE 3+ (NEGATIVE); UROBILINOGEN,URINE NORMAL MG/DL (0.0-1.0)
--- NOTE | 2020-03-01 06:57 | NUR ---
ED Nurse Note: IV fluids and ABX administered. Pt in bed states feeling less SOB with 4L nC currently sating 100%, continues to be tachycardic 105-110, with fever 101.5.
[2020-03-01] MEDS ORDERED: ACETAMINOPHEN325 M1 ORAL (07:15)
--- NOTE | 2020-03-01 07:18 | NUR ---
HAND-OFF: Report given to Ms. Bekah RN. Placed new full oxygen tank for pt.
[2020-03-01 07:20] LABS: APPEARANCE,URINE SLIGHTLY CLOUDY; COLOR,URINE YELLOW
--- NOTE | 2020-03-01 08:00 | NUR ---
AWKE ALERT ORIENTED FEELS BETTER NOW IV FLUID INFUSING .CONTINUES TO BE ON O2
[2020-03-01] MEDS ORDERED: Albuterol/Ipratropium 3ml neb HHN PRN (08:15)
--- NOTE | 2020-03-01 09:12 | Diagnostic Imaging Report ---
Indication: Cough Technique: One view of the chest Comparison: none Findings: There are bilateral streaky and patchy infiltrates in a peribronchovascular distribution. The heart size is upper limits normal. Impression: Bilateral infiltrates, likely multifocal pneumonia, likely viral
--- NOTE | 2020-03-01 09:52 | NUR ---
REPOERT GIVEN TO BULMARO PATIENT IS TO BE TRANSFERD TO ROOM 402-2 VIA GURNEY AND O2
[2020-03-01] MEDS ORDERED: Miralax 17gm pkt ORAL PRN (10:00)
--- NOTE | 2020-03-01 10:30 | NUR ---
NURSE NOTES: REPORT RECEIVED FROM AUSTIN SAHA RN. PATIENT TRANSPORTED VIA GURNEY BY TRANSPORTATION. AOX4. NON-PRODUCTIVE COUGH PRESENT. BELONGINGS CHECKED AND ACCOUNTED FOR. PATIENT ORIENTED TO ROOM. BED IN LOW AND LOCKED POSITION. CALL LIGHT WITHIN REACH.. QUESTIONS ANSWERED, NEEDS MET. DISCUSSED PLAN OF CARE FOR THE DAY. VERBALIZED UNDERSTANDING. WILL CONTINUE TO MONITOR.
--- NOTE | 2020-03-01 10:42 | Consultation ---
History of Present Illness General Date patient seen: Mar 01, 2020 Time patient seen: 10:39 Chief Complaint: Flu Like Symptoms Referring physician: PCP Reason for Consultation: COVID+ Present Illness HPI 54yo F who p/w SOB, COVID + for which ID is consulted Pt AF in house, HDS on 4L NC, labs wnl, CXR w/ BL pna. Pt is feeling OK, just some SOB No allergies to abx Allergies: Coded Allergies: No Known Allergies (Unverified , 06/24/18) Medication History Scheduled Ibuprofen* (Motrin*), 800 MG ORAL THREE TIMES A DAY Methocarbamol* (Robaxin*), 500 MG PO TID No Known Medications* (NKM - No Known Medications*), 0 ., (Reported) Scheduled PRN Acetaminophen* (Acetaminophen 325MG Tablet*), 650 MG ORAL Q4H PRN for For Pain, (Reported) Ibuprofen (Motrin), 600 MG ORAL Q8H PRN for For Pain Ibuprofen (Motrin), 600 MG ORAL Q8H PRN for For Pain Discontinued Medications Acetaminophen With Codeine (T#3) (Tylenol #3 Tab*), 1 TAB ORAL Q4H PRN for For Pain Discontinued Reason: Pt stopped taking med Cephalexin* (Keflex*), 500 MG ORAL EVERY 6 HOURS, (Reported) Discontinued Reason: Pt stopped taking med Cyclobenzaprine Hcl* (Flexeril*), 10 MG ORAL THREE TIMES A DAY Discontinued Reason: Pt stopped taking med Gabapentin* (Gabapentin*), 300 MG ORAL BEDTIME Discontinued Reason: Pt stopped taking med Hydrocodone Bit/Acetaminophen 5-325* ([place] 5-325*), 1 TAB ORAL Q6H PRN for For Pain Discontinued Reason: Pt stopped taking med Lidocaine (Lidocaine), 5 % TP ONCE Discontinued Reason: Pt stopped taking med Lidocaine (Lidocaine), 5 % TP DAILY Discontinued Reason: Pt stopped taking med Lidocaine Patch* (Lidoderm Patch*), 1 PATCH TOPIC DAILY Discontinued Reason: Pt stopped taking med Naproxen* (Naproxen*), 500 MG ORAL TWICE A DAY, (Reported) Discontinued Reason: Pt stopped taking med Tramadol Hcl* (Ultram*), 50 MG ORAL Q6H PRN for For Pain Discontinued Reason: Pt stopped taking med Trimethoprim/Sulfamethoxazole 160/800* (Bactrim Ds Tablet*), 1 TAB ORAL DAILY, (Reported) Discontinued Reason: Pt stopped taking med Patient History Healthcare decision maker Resuscitation status Advanced Directive on File Review of Systems ROS Narrative 10-point neg except as noted in HPI Physical Exam Physical Exam Narrative Gen: NAD HEENT: NCAT on NC Pulm: BL chest rise on NC Abd: Soft, NTND Ext: No c/c/e Neuro: Awake, interactive Last 24 Hour Vital Signs Date Time Temp Pulse Resp B/P (MAP) Pulse Ox O2 Delivery O2 Flow Rate FiO2 03/01/20 10:30 98.1 103 18 131/68 (89) 98 03/01/20 10:09 98.4 98 2 116/70 98 Nasal Cannula 2.0 03/01/20 09:41 98.4 98 2 116/70 98 Nasal Cannula 2.0 03/01/20 07:19 101.5 101 24 128/72 100 Nasal Cannula 4.0 03/01/20 06:43 101.5 03/01/20 05:44 112 30 03/01/20 05:44 102.2 112 30 140/76 100 Nasal Cannula 4.0 03/01/20 05:39 102.0 118 18 127/73 (91) 88 Room Air Intake and Output 02/29/20 03/01/20 19:00 07:00 # Voids 1 Laboratory Tests Test 03/01/20 05:50 White Blood Count 6.7 K/UL (4.8-10.8) Red Blood Count 4.67 M/UL (4.20-5.40) Hemoglobin 13.8 G/DL (12.0-16.0) Hematocrit 39.0 % (37.0-47.0) Mean Corpuscular Volume 83 FL (80-99) Mean Corpuscular Hemoglobin 29.5 PG (27.0-31.0) Mean Corpuscular Hemoglobin Concent 35.3 G/DL (32.0-36.0) Red Cell Distribution Width 14.0 % (11.6-14.8) Platelet Count 252 K/UL (150-450) Mean Platelet Volume 8.0 FL (6.5-10.1) Neutrophils (%) (Auto) 80.6 % (45.0-75.0) H Lymphocytes (%) (Auto) 14.3 % (20.0-45.0) L Monocytes (%) (Auto) 4.9 % (1.0-10.0) Eosinophils (%) (Auto) 0.0 % (0.0-3.0) Basophils (%) (Auto) 0.2 % (0.0-2.0) Prothrombin Time 11.4 SEC (9.30-11.50) Prothromb Time International Ratio 1.0 (0.9-1.1) Activated Partial Thromboplast Time 31 SEC (23-33) D-Dimer 0.47 mg/L FEU (0.00-0.49) Urine Color Yellow Urine Appearance Slightly cloudy Urine pH 7 (4.5-8.0) Urine Specific [place] 1.010 (1.005-1.035) Urine Protein 3+ (NEGATIVE) H Urine Glucose (UA) Negative (NEGATIVE) Urine Ketones 3+ (NEGATIVE) H Urine Blood 3+ (NEGATIVE) H Urine Nitrite Negative (NEGATIVE) Urine Bilirubin Negative (NEGATIVE) Urine Urobilinogen Normal MG/DL (0.0-1.0) Urine Leukocyte Esterase 1+ (NEGATIVE) H Urine RBC 5-10 /HPF (0 - 2) H Urine WBC 10-15 /HPF (0 - 2) H Urine Squamous Epithelial Cells Moderate /LPF (NONE/OCC) H Urine Bacteria Many /HPF (NONE) H Sodium Level 132 MMOL/L (136-145) L Potassium Level 3.6 MMOL/L (3.5-5.1) Chloride Level 98 MMOL/L (98-107) Carbon Dioxide Level 28 MMOL/L (21-32) Anion Gap 6 mmol/L (5-15) Blood Urea Nitrogen 9 mg/dL (7-18) Creatinine 0.7 MG/DL (0.55-1.30) Estimat Glomerular Filtration Rate > 60 mL/min (>60) Glucose Level 147 MG/DL (74-106) H Lactic Acid Level 1.30 mmol/L (0.4-2.0) Calcium Level 8.0 MG/DL (8.5-10.1) L Phosphorus Level 2.6 MG/DL (2.5-4.9) Magnesium Level 1.8 MG/DL (1.8-2.4) Ferritin 231 NG/ML (8-388) Total Bilirubin 0.5 MG/DL (0.2-1.0) Aspartate Amino Transf (AST/SGOT) 40 U/L (15-37) H Alanine Aminotransferase (ALT/SGPT) 38 U/L (12-78) Alkaline Phosphatase 82 U/L (46-116) Lactate Dehydrogenase 391 U/L (81-234) H Total Creatine Kinase 162 U/L (26-308) Creatine Kinase MB < 0.5 NG/ML (0.0-3.6) Creatine Kinase MB Relative Index 0.3 Troponin I 0.000 ng/mL (0.000-0.056) C-Reactive Protein, Quantitative 19.8 mg/dL (0.00-0.90) H Pro-B-Type Natriuretic Peptide 23 pg/mL (0-125) Total Protein 8.1 G/DL (6.4-8.2) Albumin 3.1 G/DL (3.4-5.0) L Globulin 5.0 g/dL Albumin/Globulin Ratio 0.6 (1.0-2.7) L Lipase 124 U/L (73-393) Microbiology Date/Time Source Procedure Growth Status 03/01/20 05:50 Nasal Nares - Final Complete 03/01/20 05:50 Nasal Nares - Final Complete 03/01/20 05:50 Nasopharynx SARS-CoV-2 RdRp Gene Assay - Final Complete Height (Feet): 5 Height (Inches): 6.00 Weight (Pounds): 190 Medications Current Medications Medications (Trade) Dose Ordered Sig/Inge Route PRN Reason Start Time Stop Time Status Last Admin Dose Admin Acetaminophen (Tylenol) 650 mg Q4H PRN ORAL FEVER 03/01/20 10:00 03/31/20 09:59 Albuterol/ Ipratropium (Combivent Respimat) 1 puff Q6H PRN INH Shortness of Breath 03/01/20 10:00 03/31/20 09:59 Azithromycin 250 mg/Dextrose 275 ml @ 275 mls/hr Q24HRS IV 03/02/20 09:00 03/07/20 08:59 Ceftriaxone Sodium 1 gm/ Dextrose 55 ml @ 110 mls/hr Q24H IVPB 03/02/20 08:00 03/09/20 07:59 Dexamethasone (Decadron) 6 mg DAILY ORAL 03/02/20 09:00 03/10/20 09:01 Dextrose (Dextrose 50%) 25 ml Q30M PRN IV Hypoglycemia 03/01/20 10:00 05/30/20 09:59 Dextrose (Dextrose 50%) 50 ml Q30M PRN IV Hypoglycemia 03/01/20 10:00 05/30/20 09:59 Heparin Sodium (Porcine) (Heparin 5000 units/ml) 5,000 units EVERY 12 HOURS SUBQ 03/01/20 10:30 04/15/20 10:29 Ondansetron HCl (Zofran) 4 mg Q6H PRN IVP Nausea & Vomiting 03/01/20 10:00 03/31/20 09:59 Polyethylene Glycol (Miralax) 17 gm DAILYPRN PRN ORAL Constipation 03/01/20 10:00 03/31/20 09:59 Promethazine HCl/ Codeine (Phenergan with Codeine) 5 ml Q6H PRN ORAL cough 03/01/20 10:00 03/31/20 09:59 Assessment/Plan Assessment/Plan: 54yo F who p/w: COVID pna Acute hypoxia 2/2 COVID Normal WBC Lymphopenia Febrile to 102.2 03/01 COVID+ BCx p UA 10-15 WBC, UCx p Resp cx p CXR: BL pna Flu neg Plan: Start RDV #1/5 Cont dex 6mg daily #1/10 Cont CTX/azithro #1/5 Monitor CBC/CMP Monitor resp status Monitor temp curve, hemodynamics D/w RN and Dr. Argueta Thank you for this consult. [facility] will continue to follow. Nohemi Marcelino M.D. Mar 01, 2020 10:42
[2020-03-01] MEDS: Heparin 5000 units/ml inj SUBQ SCH ×2 (12:21→20:40)
[2020-03-01] MEDS ORDERED: Loading Dose:Remdesivir 200mg/NS 210ml IV SCH ×2 (14:00)
[2020-03-01] MEDS: Promethazine/Codeine 5ml UD ORAL PRN (14:16)
--- NOTE | 2020-03-01 15:02 | History & Physical ---
History and Physical History & Physicial Issa Botello MD Mar 01, 2020 15:02
--- NOTE | 2020-03-01 16:11 | NUR ---
NURSE NOTES: 1ST DOSE REMDESIVIR PATIENT REMAINS STABLE. PHENERGAN GIVEN FOR COUGH. NON-PRODUCTIVE COUGH SUBSIDING. TOLERATING 1ST DOSE OF REMDESIVIR. VSS. AFEBRILE.
--- NOTE | 2020-03-01 19:05 | NUR ---
NURSE NOTES: Received report from MELANIE Bansal. AAO x 4, on NC2L. No labored breathing. Denies pain or discomfort. Ambulatory. IV site intact and patent. Bed locked, lowest position, alarm on, side rails up, call light within reach. Will continue to monitor.
--- NOTE | 2020-03-01 19:25 | NUR ---
NURSE HAND-OFF: Important Events on Shift:1 ST DOSE OF REMDESIVIR Patient Status: STABLE Diet: REGULAR Pending Orders: N./A Pending Results/Labs:N/A Pending MD notification:N/A Latest Vital Signs: Temperature 98.4 , Pulse 88 , B/P 119 /67 , Respiratory Rate 18 , O2 SAT 95 , Nasal Cannula, O2 Flow Rate 3.0 . Vital Sign Comment: N/A Latest Darling Fall Score: 35 Fall Risk: Medium Risk Safety Measures: Call light Within Reach, Bed Alarm , Side Rails Side Rails x2, Bed position Low and Locked. Fall Precautions: Door Sign Patient Fall Education Report given to NILO NAVARRO.
[2020-03-02] VITALS: BP 115/66
[2020-03-02 04:00] VITALS: BP 127/86
[2020-03-02] MEDS: Promethazine/Codeine 5ml UD ORAL PRN ×2 (04:48→17:12)
[2020-03-02 05:59] LABS: BASOPHILS % (AUTO) 0.2 % (0.0-2.0); HEMATOCRIT 38.9 % (37.0-47.0); HEMOGLOBIN 13.1 G/DL (12.0-16.0); LYMPHOCYTES % (AUTO) 11.3 % (20.0-45.0); MEAN CORPUSCULAR VOLUME 88 FL (80-99); MONOCYTES % (AUTO) 5.5 % (1.0-10.0); PLATELET COUNT 280 K/UL (150-450); RED BLOOD COUNT 4.43 M/UL (4.20-5.40); RED CELL DISTRIBUTION WIDTH 13.8 % (11.6-14.8); WHITE BLOOD COUNT 7.3 K/UL (4.8-10.8)
--- NOTE | 2020-03-02 06:21 | NUR ---
NURSE HAND-OFF: Important Events on Shift: Patient Status: stable Diet: reg Pending Orders: Pending Results/Labs:am labs Pending MD notification: Latest Vital Signs: Temperature 97.3 , Pulse 95 , B/P 127 /86 , Respiratory Rate 18 , O2 SAT 92 , Nasal Cannula, O2 Flow Rate 2.0 . Vital Sign Comment: [] Latest Darling Fall Score: 35 Fall Risk: Medium Risk Safety Measures: Call light Within Reach, Bed Alarm Zone 1, Side Rails Side Rails x2, Bed position Low and Locked. Fall Precautions: Yeimi Cabrera Patient Fall Education Addendum: 03/02/20 at 0726 by NILO WATERMAN RN RN HAND-OFF: Report given to
[2020-03-02 06:50] LABS: ALANINE AMINOTRANSFERASE 40 U/L (12-78); ALBUMIN 2.8 G/DL (3.4-5.0); ALBUMIN/GLOBULIN RATIO 0.5 (1.0-2.7); ALKALINE PHOSPHATASE 77 U/L (46-116); ANION GAP 9 mmol/L (5-15); ASPARTATE AMINO TRANSFERASE 39 U/L (15-37); BILIRUBIN,TOTAL 0.4 MG/DL (0.2-1.0); BLOOD UREA NITROGEN 13 mg/dL (7-18); CALCIUM 8.8 MG/DL (8.5-10.1); CARBON DIOXIDE 27 MMOL/L (21-32); CHLORIDE 104 MMOL/L (98-107); CREATININE 0.6 MG/DL (0.55-1.30); PHOSPHORUS 3.5 MG/DL (2.5-4.9); POTASSIUM 3.7 MMOL/L (3.5-5.1); SODIUM 140 MMOL/L (136-145)
--- NOTE | 2020-03-02 07:46 | NUR ---
NURSE NOTES: Patient alert x4; on Nasal Cannula 3 Liters, no sign of distress and shortness of breath; no sing of chest pain; IV LAC flushes well; side rails up x2, breaks engaged, bed at lowest position, breaks engaged; call light within reach; will keep monitoring.
[2020-03-02 08:00] VITALS: BP 125/81
[2020-03-02] MEDS: cefTRIAXone 1 GM in D5W 55 ML IVPB SCH (09:26)
[2020-03-02] MEDS: Heparin 5000 units/ml inj SUBQ SCH ×2 (09:27→20:05)
[2020-03-02] MEDS: Azithromycin 250 MG in D5W 275 ML IV SCH (10:35)
[2020-03-02 12:00] VITALS: BP 121/65
--- NOTE | 2020-03-02 13:20 | Pulmonology Progress Note ---
Subjective ROS Limited/Unobtainable: No Constitutional: Reports: no symptoms HEENT: Repors: no symptoms Respiratory: Reports: no symptoms Allergies: Coded Allergies: No Known Allergies (Unverified , 06/24/18) Objective Last 24 Hour Vital Signs Date Time Temp Pulse Resp B/P (MAP) Pulse Ox O2 Delivery O2 Flow Rate FiO2 03/02/20 12:00 98.3 84 18 121/65 (83) 92 03/02/20 09:00 Nasal Cannula 2.0 03/02/20 08:00 98.2 93 18 125/81 (96) 93 03/02/20 04:00 97.3 95 18 127/86 (100) 92 03/02/20 00:00 97.7 82 20 115/66 (82) 93 03/01/20 21:00 Nasal Cannula 2.0 03/01/20 20:00 97.3 84 20 106/60 (75) 92 03/01/20 16:00 98.4 88 18 119/67 (84) 95 Intake and Output 0 03/01/20 03/02/20 19:00 07:00 Intake Total 785 ml Balance 785 ml Intake Oral 480 ml IV Total 305 ml # Voids 2 2 General Appearance: WD/WN HEENT: normocephalic, atraumatic Respiratory: chest wall non-tender, lungs clear Breasts: no masses Cardiovascular: normal peripheral pulses, normal rate Abdomen: normal bowel sounds, soft, non tender Genitourinary: normal external genitalia Extremities: no cyanosis Skin: no rash Microbiology Date/Time Source Procedure Growth Status 03/01/20 05:50 Urine,Clean Catch Urine Culture - Preliminary Gram Negative Oleg Resulted 03/01/20 05:50 Nasal Nares - Final Complete 03/01/20 05:50 Nasal Nares - Final Complete 03/01/20 05:50 Nasopharynx SARS-CoV-2 RdRp Gene Assay - Final Complete Laboratory Tests 03/02/20 04:00: White Blood Count 7.3, Red Blood Count 4.43, Hemoglobin 13.1, Hematocrit 38.9, Mean Corpuscular Volume 88, Mean Corpuscular Hemoglobin 29.5, Mean Corpuscular Hemoglobin Concent 33.7, Red Cell Distribution Width 13.8, Platelet Count 280, Mean Platelet Volume 7.6, Neutrophils (%) (Auto) 83.0H, Lymphocytes (%) (Auto) 11.3L, Monocytes (%) (Auto) 5.5, Eosinophils (%) (Auto) 0.0, Basophils (%) (Auto) 0.2, Sodium Level 140, Potassium Level 3.7, Chloride Level 104, Carbon Dioxide Level 27, Anion Gap 9, Blood Urea Nitrogen 13, Creatinine 0.6, Estimat Glomerular Filtration Rate > 60, Glucose Level 162H, Calcium Level 8.8, Phosphorus Level 3.5, Total Bilirubin 0.4, Direct Bilirubin < 0.1, Aspartate Amino Transf (AST/SGOT) 39H, Alanine Aminotransferase (ALT/SGPT) 40, Alkaline Phosphatase 77, Total Protein 7.9, Albumin 2.8L, Globulin 5.1, Albumin/Globulin Ratio 0.5L Current Medications Medications (Trade) Dose Ordered Sig/Inge Route PRN Reason Start Time Stop Time Status Last Admin Dose Admin Acetaminophen (Tylenol) 650 mg Q4H PRN ORAL FEVER 03/01/20 10:00 03/31/20 09:59 Albuterol/ Ipratropium (Combivent Respimat) 1 puff Q6H PRN INH Shortness of Breath 03/01/20 10:00 03/31/20 09:59 Azithromycin 250 mg/Dextrose 275 ml @ 275 mls/hr Q24HRS IV 03/02/20 09:00 03/07/20 08:59 03/02/20 10:35 Ceftriaxone Sodium 1 gm/ Dextrose 55 ml @ 110 mls/hr Q24H IVPB 03/02/20 08:00 03/09/20 07:59 03/02/20 09:26 Dexamethasone (Decadron) 6 mg DAILY ORAL 03/02/20 09:00 03/10/20 09:01 03/02/20 09:26 Dextrose (Dextrose 50%) 25 ml Q30M PRN IV Hypoglycemia 03/01/20 10:00 05/30/20 09:59 Dextrose (Dextrose 50%) 50 ml Q30M PRN IV Hypoglycemia 03/01/20 10:00 05/30/20 09:59 Heparin Sodium (Porcine) (Heparin 5000 units/ml) 5,000 units EVERY 12 HOURS SUBQ 03/01/20 10:30 04/15/20 10:29 03/02/20 09:27 Ondansetron HCl (Zofran) 4 mg Q6H PRN IVP Nausea & Vomiting 03/01/20 10:00 03/31/20 09:59 Polyethylene Glycol (Miralax) 17 gm DAILYPRN PRN ORAL Constipation 03/01/20 10:00 03/31/20 09:59 Promethazine HCl/ Codeine (Phenergan with Codeine) 5 ml Q6H PRN ORAL cough 03/01/20 10:00 03/31/20 09:59 03/02/20 04:48 Remdesivir 100 mg/ Sodium Chloride 250 ml @ 250 mls/hr Q24H IV 03/02/20 14:00 03/05/20 14:59 Assessment/Plan Problems: (1) Multifocal pneumonia (2) COVID-19 (3) UTI (urinary tract infection) (4) Sepsis Assessment/Plan iv abx check urine cultures f/u inflammatory markers titrate fio2 to sat of 92%^ dvt prophylaxis Laya Argueta MD Mar 02, 2020 13:20
--- NOTE | 2020-03-02 13:29 | Internal Med Progress Note ---
Subjective Physician Name Issa Botello Attending Physician Issa Botello MD Current Medications Medications (Trade) Dose Ordered Sig/Inge Route PRN Reason Start Time Stop Time Status Last Admin Dose Admin Acetaminophen (Tylenol) 650 mg Q4H PRN ORAL FEVER 03/01/20 10:00 03/31/20 09:59 Albuterol/ Ipratropium (Combivent Respimat) 1 puff Q6H PRN INH Shortness of Breath 03/01/20 10:00 03/31/20 09:59 Azithromycin 250 mg/Dextrose 275 ml @ 275 mls/hr Q24HRS IV 03/02/20 09:00 03/07/20 08:59 03/02/20 10:35 Ceftriaxone Sodium 1 gm/ Dextrose 55 ml @ 110 mls/hr Q24H IVPB 03/02/20 08:00 03/09/20 07:59 03/02/20 09:26 Dexamethasone (Decadron) 6 mg DAILY ORAL 03/02/20 09:00 03/10/20 09:01 03/02/20 09:26 Dextrose (Dextrose 50%) 25 ml Q30M PRN IV Hypoglycemia 03/01/20 10:00 05/30/20 09:59 Dextrose (Dextrose 50%) 50 ml Q30M PRN IV Hypoglycemia 03/01/20 10:00 05/30/20 09:59 Heparin Sodium (Porcine) (Heparin 5000 units/ml) 5,000 units EVERY 12 HOURS SUBQ 03/01/20 10:30 04/15/20 10:29 03/02/20 09:27 Ondansetron HCl (Zofran) 4 mg Q6H PRN IVP Nausea & Vomiting 03/01/20 10:00 03/31/20 09:59 Polyethylene Glycol (Miralax) 17 gm DAILYPRN PRN ORAL Constipation 03/01/20 10:00 03/31/20 09:59 Promethazine HCl/ Codeine (Phenergan with Codeine) 5 ml Q6H PRN ORAL cough 03/01/20 10:00 03/31/20 09:59 03/02/20 04:48 Remdesivir 100 mg/ Sodium Chloride 250 ml @ 250 mls/hr Q24H IV 03/02/20 14:00 03/05/20 14:59 Allergies: Coded Allergies: No Known Allergies (Unverified , 4/18/19) Subjective awake, alert, responsive, denies any chest pain, nausea or vomiting. complain about less shortness of breath and dry cough. Objective Last Vital Signs Date Time Temp Pulse Resp B/P (MAP) Pulse Ox O2 Delivery O2 Flow Rate FiO2 03/02/20 12:00 98.3 84 18 121/65 (83) 92 03/02/20 09:00 Nasal Cannula 2.0 Laboratory Tests Test 03/02/20 04:00 White Blood Count 7.3 K/UL (4.8-10.8) Red Blood Count 4.43 M/UL (4.20-5.40) Hemoglobin 13.1 G/DL (12.0-16.0) Hematocrit 38.9 % (37.0-47.0) Mean Corpuscular Volume 88 FL (80-99) Mean Corpuscular Hemoglobin 29.5 PG (27.0-31.0) Mean Corpuscular Hemoglobin Concent 33.7 G/DL (32.0-36.0) Red Cell Distribution Width 13.8 % (11.6-14.8) Platelet Count 280 K/UL (150-450) Mean Platelet Volume 7.6 FL (6.5-10.1) Neutrophils (%) (Auto) 83.0 % (45.0-75.0) H Lymphocytes (%) (Auto) 11.3 % (20.0-45.0) L Monocytes (%) (Auto) 5.5 % (1.0-10.0) Eosinophils (%) (Auto) 0.0 % (0.0-3.0) Basophils (%) (Auto) 0.2 % (0.0-2.0) Sodium Level 140 MMOL/L (136-145) Potassium Level 3.7 MMOL/L (3.5-5.1) Chloride Level 104 MMOL/L (98-107) Carbon Dioxide Level 27 MMOL/L (21-32) Anion Gap 9 mmol/L (5-15) Blood Urea Nitrogen 13 mg/dL (7-18) Creatinine 0.6 MG/DL (0.55-1.30) Estimat Glomerular Filtration Rate > 60 mL/min (>60) Glucose Level 162 MG/DL (74-106) H Calcium Level 8.8 MG/DL (8.5-10.1) Phosphorus Level 3.5 MG/DL (2.5-4.9) Total Bilirubin 0.4 MG/DL (0.2-1.0) Direct Bilirubin < 0.1 MG/DL (0.0-0.3) Aspartate Amino Transf (AST/SGOT) 39 U/L (15-37) H Alanine Aminotransferase (ALT/SGPT) 40 U/L (12-78) Alkaline Phosphatase 77 U/L (46-116) Total Protein 7.9 G/DL (6.4-8.2) Albumin 2.8 G/DL (3.4-5.0) L Globulin 5.1 g/dL Albumin/Globulin Ratio 0.5 (1.0-2.7) L Microbiology Date/Time Source Procedure Growth Status 03/01/20 05:50 Urine,Clean Catch Urine Culture - Preliminary Gram Negative Oleg Resulted 03/01/20 05:50 Nasal Nares - Final Complete 03/01/20 05:50 Nasal Nares - Final Complete 03/01/20 05:50 Nasopharynx SARS-CoV-2 RdRp Gene Assay - Final Complete Intake and Output 03/01/20 03/02/20 19:00 07:00 Intake Total 785 ml Balance 785 ml Intake Oral 480 ml IV Total 305 ml # Voids 2 2 Objective General: No acute distress, awake and alert HEENT: NCAT, sclera anicteric, PERRL, EOMI. Neck: Supple, no significant jugular venous distention, Lungs: Fair inspiratory effort, decreased air at the bases, no Wheeze or Rales. Heart: Regular rate and rhythm, normal S1/S2, no murmurs/gallops Abdomen: soft, nontender, nondistended. Normoactive bowel sounds, Obesity. / Rectal: Refused and deferred. Extremities: No Cyanosis , clubbing or edema. Neuro: A&O x 3, Able to move all extremities Skin: warm, no rashes or lesions Psych: Normal mood and affect Assessment/Plan Assessment/Plan COVID-19 pneumonia Proteus mirabilis UTI Sepsis Obesity Plan: Abx: Rocephin and azithromycin On Decadron IV On Rendesivir IV Monitor laboratory and cultures CODE STATUS: Full code DVT prophylaxis: Heparin subcu Follow-up with pulmonary/critical care and infection disease consultations. DC telemetry in the morning. Issa Botello MD Mar 02, 2020 13:29
[2020-03-02] MEDS: Maintenance Dose:Remdesivir 100mg/NS 230ml x 4 Doses IV SCH ×2 (14:08)
[2020-03-02 16:00] VITALS: BP 130/72
--- NOTE | 2020-03-02 17:40 | NUR ---
NURSE NOTES: Sputum collected and dropped to the lab; waiting for the result;
--- NOTE | 2020-03-02 19:03 | NUR ---
NURSE NOTES: Received report from MELANIE Luevano. AAO x 4, on NC3L. No labored breathing. Denies pain or discomfort. Ambulatory. IV site intact and patent. Bed locked, lowest position, alarm on, side rails up, call light within reach. Will continue to monitor.
--- NOTE | 2020-03-02 19:05 | NUR ---
NURSE HAND-OFF: Important Events on Shift:Sputum collected; Codiene for cough given; anti-biotics administered Patient Status: Diet: Pending Orders: Pending Results/Labs: Pending MD notification: Latest Vital Signs: Temperature 97.6 , Pulse 86 , B/P 130 /72 , Respiratory Rate 18 , O2 SAT 93 , Nasal Cannula, O2 Flow Rate 2.0 . Vital Sign Comment: Latest Darling Fall Score: 35 Fall Risk: Medium Risk Safety Measures: Call light Within Reach, Bed Alarm Zone 1, Side Rails Side Rails x2, Bed position Low and Locked. Fall Precautions: Yellow Socks Patient Fall Education Report given to .
--- NOTE | 2020-03-02 19:08 | NUR ---
HAND-OFF: Report given to MELANIE Carbone.
[2020-03-02 20:00] VITALS: BP 106/63
--- NOTE | 2020-03-02 20:01 | History and Physical Report ---
DATE OF ADMISSION: 03/01/2020 CHIEF COMPLAINT: Flu-like symptoms, shortness of breath and cough. HISTORY OF PRESENT ILLNESS: This is a 54-year-old very delightful female, who denies any past medical history except history of hysterectomy, presented to the emergency department complaining of shortness of breath and fever, that has been going on for past six days. She has nonproductive cough associated with the headache, fatigue, and general body aches. She has been taking alternating Tylenol and Motrin without any relief. She was complaining about diaphoresis and shortness of breath. Denies any chest pain, nausea, or vomiting, or diarrhea. Shortly after initial evaluation in the emergency department, the patient was noted to have COVID-19 infection and subsequently the patient was admitted to the hospital with COVID-19 pneumonia and acute urinary tract infection. PAST MEDICAL HISTORY/PAST SURGICAL HISTORY: Significant for obesity and hysterectomy. ALLERGIES: No known drug allergies. MEDICATIONS AT HOME: None. SOCIAL HISTORY: Denies any smoking, alcohol, or drugs. FAMILY HISTORY: Noncontributory. REVIEW OF SYSTEMS: Mostly as above. Denies any dysuria, frequency, or hematuria. Denies any hemoptysis or hematochezia. Denies any loss of consciousness. Complained about cough and shortness of breath. Denies any loss of consciousness. Denies any fall or head trauma. PHYSICAL EXAMINATION: VITAL SIGNS: On admission from the emergency department, temperature 102.0, pulse of 118, respirations 18, and blood pressure 127/73. GENERAL: The patient is awake and responsive, in no acute distress. HEAD AND NECK: Pupils are equal and reactive. Extraocular movements are intact. Neck was supple. No JVD. LUNGS: Good air entry. No wheezes or rales. Decreased air in bases. HEART: S1, S2. Regular rhythm. No murmur or gallops. ABDOMEN: Soft, nondistended, and nontender. No rebound tenderness. No fluid shift. Morbidly obese. EXTREMITIES: No cyanosis, clubbing, or edema. NEUROLOGIC: Cranial nerves II through XII was grossly intact. Motor is 5/5 in all extremities. Gait is intact. RECTAL: Refused and deferred. : Refused and deferred. PSYCHIATRIC: Mood and affect is intact. LABORATORY DATA: On admission, WBC of 6.7, hemoglobin 13, hematocrit 39, and platelets 252,000. Sodium 132, potassium 3.6, chloride 98, bicarbonate 28, BUN 9, creatinine 0.7. GFR greater than 60. Glucose is 147. Calcium is 8.0. Total bilirubin of 0.5, AST of 40, ALT of 38. Lactic dehydrogenase is 391. First troponin less than 0.00. BNP of 23. Lipase is 124. UA is +3 protein, +3 ketones, +3 blood, +1 leukocyte esterase, 5 to 10 rbc, 10 to 15 wbc, epithelial cells, many bacteria. PT of 14, INR 1.0, PTT of 31. D-dimer is 0.47. COVID test is positive. Chest x-ray, bilateral infiltrates, likely multifocal pneumonia. ASSESSMENT: 1. COVID-19 pneumonia. 2. Acute urinary tract infection. 3. Sepsis. 4. Morbid obesity. PLAN: 1. Admit the patient to monitored unit. 2. We will follow up with Dr. Argueta, Pulmonary Critical Care and Dr. Marcelino from Infectious Disease. 3. Start the patient on broad-spectrum antibiotic with azithromycin and Rocephin. Follow up with cultures as well as laboratory. 4. Code status is Full code. 5. DVT prophylaxis, heparin subcutaneous. Issa Botello M.D. DR: SADIQ JOB#: [id number] CC:
[2020-03-03] VITALS: BP 115/67
[2020-03-03 04:00] VITALS: BP 121/69
[2020-03-03] MEDS: Promethazine/Codeine 5ml UD ORAL PRN ×2 (04:24→09:54)
--- NOTE | 2020-03-03 06:31 | NUR ---
NURSE HAND-OFF: Important Events on Shift:cough Patient Status: stable Diet: reg Pending Orders: Pending Results/Labs:am labs Pending MD notification: Latest Vital Signs: Temperature 98.1 , Pulse 87 , B/P 121 /69 , Respiratory Rate 20 , O2 SAT 93 , Nasal Cannula, O2 Flow Rate 3.0 . Vital Sign Comment: [] Latest Darling Fall Score: 35 Fall Risk: Medium Risk Safety Measures: Call light Within Reach, Bed Alarm Zone 1, Side Rails Side Rails x2, Bed position Low and Locked. Fall Precautions: Yeimi Cabrera Patient Fall Education Addendum: 03/03/20 at 0716 by NILO WATERMAN RN RN HAND-OFF: Report given to
[2020-03-03 08:00] VITALS: BP 125/66
[2020-03-03] MEDS: Heparin 5000 units/ml inj SUBQ SCH ×2 (08:51→22:08)
[2020-03-03] MEDS: Azithromycin 250 MG in D5W 275 ML IV SCH (08:51)
[2020-03-03] MEDS: cefTRIAXone 1 GM in D5W 55 ML IVPB SCH (08:52)
[2020-03-03 09:01] LABS: BASOPHILS % (AUTO) 0.2 % (0.0-2.0); HEMATOCRIT 38.4 % (37.0-47.0); HEMOGLOBIN 13.2 G/DL (12.0-16.0); LYMPHOCYTES % (AUTO) 14.2 % (20.0-45.0); MEAN CORPUSCULAR VOLUME 86 FL (80-99); MONOCYTES % (AUTO) 8.2 % (1.0-10.0); NEUTROPHILS % (AUTO) 77.4 % (45.0-75.0); PLATELET COUNT 344 K/UL (150-450); RED BLOOD COUNT 4.47 M/UL (4.20-5.40); RED CELL DISTRIBUTION WIDTH 13.7 % (11.6-14.8); WHITE BLOOD COUNT 6.3 K/UL (4.8-10.8)
[2020-03-03 09:14] LABS: ALANINE AMINOTRANSFERASE 42 U/L (12-78); ALBUMIN 2.9 G/DL (3.4-5.0); ALBUMIN/GLOBULIN RATIO 0.6 (1.0-2.7); ALKALINE PHOSPHATASE 75 U/L (46-116); ANION GAP 7 mmol/L (5-15); ASPARTATE AMINO TRANSFERASE 31 U/L (15-37); BILIRUBIN,DIRECT < 0.1 MG/DL (0.0-0.3); BILIRUBIN,TOTAL 0.4 MG/DL (0.2-1.0); BLOOD UREA NITROGEN 18 mg/dL (7-18); CALCIUM 8.9 MG/DL (8.5-10.1); CARBON DIOXIDE 29 MMOL/L (21-32); CHLORIDE 105 MMOL/L (98-107); CREATININE 0.6 MG/DL (0.55-1.30); POTASSIUM 4.2 MMOL/L (3.5-5.1); SODIUM 141 MMOL/L (136-145)
--- NOTE | 2020-03-03 11:12 | Infectious Diseases Prog Note ---
Assessment/Plan 54yo F who p/w: COVID pna Acute hypoxia 2/2 COVID Normal WBC Lymphopenia Febrile to 102.2 03/01 COVID+ BCx NTD UA 10-15 WBC, UCx >100k P.mirabilis S-CTX Resp cx p CXR: BL pna Flu neg Plan: Cont RDV #3/5 Cont dex 6mg daily #3/ Cont CTX/azithro #3/5 Monitor CBC/CMP Monitor resp status Monitor temp curve, hemodynamics D/w RN Thank you for this consult. [facility] will continue to follow. Subjective Allergies: Coded Allergies: No Known Allergies (Unverified , 06/24/18) AF NAD on 2L NC WBC wnl Overall feeling better than on admission, just some ongoing cough No dysuria Objective Last 24 Hour Vital Signs Date Time Temp Pulse Resp B/P (MAP) Pulse Ox O2 Delivery O2 Flow Rate FiO2 03/03/20 09:00 Nasal Cannula 2.0 03/03/20 04:00 98.1 87 20 121/69 (86) 93 03/03/20 00:00 98.0 76 20 115/67 (83) 92 03/02/20 21:00 Nasal Cannula 3.0 03/02/20 20:00 98.1 91 20 106/63 (77) 93 03/02/20 16:00 97.6 86 18 130/72 (91) 93 03/02/20 12:00 98.3 84 18 121/65 (83) 92 Height (Feet): 5 Height (Inches): 6.00 Weight (Pounds): 190 Gen: NAD HEENT: NCAT Pulm: BL chest rise Abd: Non-distended Ext: No c/c/e Skin: No visible rashes Neuro: Awake Microbiology Date/Time Source Procedure Growth Status 03/01/20 05:50 Urine,Clean Catch Urine Culture - Final Proteus Mirabilis Complete 03/01/20 05:50 Nasal Nares - Final Complete 03/01/20 05:50 Nasal Nares - Final Complete 03/01/20 05:50 Nasopharynx SARS-CoV-2 RdRp Gene Assay - Final Complete Laboratory Tests Test 03/03/20 04:10 White Blood Count 6.3 K/UL (4.8-10.8) Red Blood Count 4.47 M/UL (4.20-5.40) Hemoglobin 13.2 G/DL (12.0-16.0) Hematocrit 38.4 % (37.0-47.0) Mean Corpuscular Volume 86 FL (80-99) Mean Corpuscular Hemoglobin 29.6 PG (27.0-31.0) Mean Corpuscular Hemoglobin Concent 34.4 G/DL (32.0-36.0) Red Cell Distribution Width 13.7 % (11.6-14.8) Platelet Count 344 K/UL (150-450) Mean Platelet Volume 6.6 FL (6.5-10.1) Neutrophils (%) (Auto) 77.4 % (45.0-75.0) H Lymphocytes (%) (Auto) 14.2 % (20.0-45.0) L Monocytes (%) (Auto) 8.2 % (1.0-10.0) Eosinophils (%) (Auto) 0.0 % (0.0-3.0) Basophils (%) (Auto) 0.2 % (0.0-2.0) Erythrocyte Sedimentation Rate 50 MM/HR (0-30) H Sodium Level 141 MMOL/L (136-145) Potassium Level 4.2 MMOL/L (3.5-5.1) Chloride Level 105 MMOL/L (98-107) Carbon Dioxide Level 29 MMOL/L (21-32) Anion Gap 7 mmol/L (5-15) Blood Urea Nitrogen 18 mg/dL (7-18) Creatinine 0.6 MG/DL (0.55-1.30) Estimat Glomerular Filtration Rate > 60 mL/min (>60) Glucose Level 149 MG/DL (74-106) H Calcium Level 8.9 MG/DL (8.5-10.1) Phosphorus Level 4.0 MG/DL (2.5-4.9) Magnesium Level 2.1 MG/DL (1.8-2.4) Total Bilirubin 0.4 MG/DL (0.2-1.0) Direct Bilirubin < 0.1 MG/DL (0.0-0.3) Aspartate Amino Transf (AST/SGOT) 31 U/L (15-37) Alanine Aminotransferase (ALT/SGPT) 42 U/L (12-78) Alkaline Phosphatase 75 U/L (46-116) C-Reactive Protein, Quantitative 9.4 mg/dL (0.00-0.90) H Total Protein 7.8 G/DL (6.4-8.2) Albumin 2.9 G/DL (3.4-5.0) L Globulin 4.9 g/dL Albumin/Globulin Ratio 0.6 (1.0-2.7) L Current Medications Medications (Trade) Dose Ordered Sig/Inge Route PRN Reason Start Time Stop Time Status Last Admin Dose Admin Acetaminophen (Tylenol) 650 mg Q4H PRN ORAL FEVER 03/01/20 10:00 03/31/20 09:59 Albuterol/ Ipratropium (Combivent Respimat) 1 puff Q6H PRN INH Shortness of Breath 03/01/20 10:00 03/31/20 09:59 Azithromycin 250 mg/Dextrose 275 ml @ 275 mls/hr Q24HRS IV 03/02/20 09:00 03/07/20 08:59 03/03/20 08:51 Ceftriaxone Sodium 1 gm/ Dextrose 55 ml @ 110 mls/hr Q24H IVPB 03/02/20 08:00 03/09/20 07:59 03/03/20 08:52 Dexamethasone (Decadron) 6 mg DAILY ORAL 03/02/20 09:00 03/10/20 09:01 03/03/20 08:51 Dextrose (Dextrose 50%) 25 ml Q30M PRN IV Hypoglycemia 03/01/20 10:00 05/30/20 09:59 Dextrose (Dextrose 50%) 50 ml Q30M PRN IV Hypoglycemia 03/01/20 10:00 05/30/20 09:59 Heparin Sodium (Porcine) (Heparin 5000 units/ml) 5,000 units EVERY 12 HOURS SUBQ 03/01/20 10:30 04/15/20 10:29 03/03/20 08:51 Ondansetron HCl (Zofran) 4 mg Q6H PRN IVP Nausea & Vomiting 03/01/20 10:00 03/31/20 09:59 Polyethylene Glycol (Miralax) 17 gm DAILYPRN PRN ORAL Constipation 03/01/20 10:00 03/31/20 09:59 Promethazine HCl/ Codeine (Phenergan with Codeine) 5 ml Q6H PRN ORAL cough 03/01/20 10:00 03/31/20 09:59 03/03/20 09:54 Remdesivir 100 mg/ Sodium Chloride 250 ml @ 250 mls/hr Q24H IV 03/02/20 14:00 03/05/20 14:59 03/02/20 14:08 Nohemi Marcelino M.D. Mar 03, 2020 11:12
[2020-03-03 12:00] VITALS: BP 130/83
[2020-03-03] MEDS: Maintenance Dose:Remdesivir 100mg/NS 230ml x 4 Doses IV SCH ×2 (13:57)
--- NOTE | 2020-03-03 15:53 | Pulmonology Progress Note ---
Subjective ROS Limited/Unobtainable: No Constitutional: Reports: no symptoms HEENT: Repors: no symptoms Respiratory: Reports: no symptoms Allergies: Coded Allergies: No Known Allergies (Unverified , 06/24/18) Objective Last 24 Hour Vital Signs Date Time Temp Pulse Resp B/P (MAP) Pulse Ox O2 Delivery O2 Flow Rate FiO2 03/03/20 12:00 97.0 91 20 130/83 (99) 94 03/03/20 09:00 Nasal Cannula 2.0 03/03/20 08:00 98.1 95 20 125/66 (85) 94 03/03/20 04:00 98.1 87 20 121/69 (86) 93 03/03/20 00:00 98.0 76 20 115/67 (83) 92 03/02/20 21:00 Nasal Cannula 3.0 03/02/20 20:00 98.1 91 20 106/63 (77) 93 03/02/20 16:00 97.6 86 18 130/72 (91) 93 Intake and Output 03/02/20 03/03/20 19:00 07:00 Intake Total 1835 ml Balance 1835 ml IV Total 635 ml Other 1200 ml # Voids 3 # Bowel Movements 1 General Appearance: WD/WN HEENT: normocephalic, atraumatic Respiratory: chest wall non-tender, lungs clear Breasts: no masses Cardiovascular: normal peripheral pulses, normal rate Abdomen: normal bowel sounds, soft, non tender Genitourinary: normal external genitalia Extremities: no cyanosis Skin: no rash Microbiology Date/Time Source Procedure Growth Status 03/01/20 05:50 Urine,Clean Catch Urine Culture - Final Proteus Mirabilis Complete 03/01/20 05:50 Nasal Nares - Final Complete 03/01/20 05:50 Nasal Nares - Final Complete 03/01/20 05:50 Nasopharynx SARS-CoV-2 RdRp Gene Assay - Final Complete 03/01/20 05:50 Blood Blood Culture - Preliminary NO GROWTH AFTER 48 HOURS Resulted 03/01/20 05:35 Blood Blood Culture - Preliminary NO GROWTH AFTER 48 HOURS Resulted Laboratory Tests 03/03/20 04:10: White Blood Count 6.3, Red Blood Count 4.47, Hemoglobin 13.2, Hematocrit 38.4, Mean Corpuscular Volume 86, Mean Corpuscular Hemoglobin 29.6, Mean Corpuscular Hemoglobin Concent 34.4, Red Cell Distribution Width 13.7, Platelet Count 344, Mean Platelet Volume 6.6, Neutrophils (%) (Auto) 77.4H, Lymphocytes (%) (Auto) 14.2L, Monocytes (%) (Auto) 8.2, Eosinophils (%) (Auto) 0.0, Basophils (%) (Auto) 0.2, Erythrocyte Sedimentation Rate 50H, Sodium Level 141, Potassium Level 4.2, Chloride Level 105, Carbon Dioxide Level 29, Anion Gap 7, Blood Urea Nitrogen 18, Creatinine 0.6, Estimat Glomerular Filtration Rate > 60, Glucose Level 149H, Calcium Level 8.9, Phosphorus Level 4.0, Magnesium Level 2.1, Total Bilirubin 0.4, Direct Bilirubin < 0.1, Aspartate Amino Transf (AST/SGOT) 31, Alanine Aminotransferase (ALT/SGPT) 42, Alkaline Phosphatase 75, C-Reactive Protein, Quantitative 9.4H, Total Protein 7.8, Albumin 2.9L, Globulin 4.9, Albumin/Globulin Ratio 0.6L Current Medications Medications (Trade) Dose Ordered Sig/Inge Route PRN Reason Start Time Stop Time Status Last Admin Dose Admin Acetaminophen (Tylenol) 650 mg Q4H PRN ORAL FEVER 03/01/20 10:00 03/31/20 09:59 Albuterol/ Ipratropium (Combivent Respimat) 1 puff Q6H PRN INH Shortness of Breath 03/01/20 10:00 03/31/20 09:59 Azithromycin 250 mg/Dextrose 275 ml @ 275 mls/hr Q24HRS IV 03/02/20 09:00 03/07/20 08:59 03/03/20 08:51 Ceftriaxone Sodium 1 gm/ Dextrose 55 ml @ 110 mls/hr Q24H IVPB 03/02/20 08:00 03/09/20 07:59 03/03/20 08:52 Dexamethasone (Decadron) 6 mg DAILY ORAL 03/02/20 09:00 03/10/20 09:01 03/03/20 08:51 Dextrose (Dextrose 50%) 25 ml Q30M PRN IV Hypoglycemia 03/01/20 10:00 05/30/20 09:59 Dextrose (Dextrose 50%) 50 ml Q30M PRN IV Hypoglycemia 03/01/20 10:00 05/30/20 09:59 Heparin Sodium (Porcine) (Heparin 5000 units/ml) 5,000 units EVERY 12 HOURS SUBQ 03/01/20 10:30 04/15/20 10:29 03/03/20 08:51 Ondansetron HCl (Zofran) 4 mg Q6H PRN IVP Nausea & Vomiting 03/01/20 10:00 03/31/20 09:59 Polyethylene Glycol (Miralax) 17 gm DAILYPRN PRN ORAL Constipation 03/01/20 10:00 03/31/20 09:59 Promethazine HCl/ Codeine (Phenergan with Codeine) 5 ml Q6H PRN ORAL cough 03/01/20 10:00 03/31/20 09:59 03/03/20 09:54 Remdesivir 100 mg/ Sodium Chloride 250 ml @ 250 mls/hr Q24H IV 03/02/20 14:00 03/05/20 14:59 03/03/20 13:57 Assessment/Plan Problems: (1) Multifocal pneumonia (2) COVID-19 (3) UTI (urinary tract infection) (4) Sepsis Assessment/Plan iv abx check urine cultures f/u inflammatory markers titrate fio2 to sat of 92%^ dvt prophylaxis Laya Argueta MD Mar 03, 2020 15:53
[2020-03-03 16:00] VITALS: BP 127/69
--- NOTE | 2020-03-03 16:33 | NUR ---
CASE MANAGEMENT:INITIAL REVIEW 03/02/20 54 YR OLD FEMALE PRESENTED TO ED FROM HOME CC;FLU LIKE SYMPTOMS SI;COVID-19 PNEUMONIA. SEPSIS. UTI. 102.2 118 30 140/76 88% ON RA PLACED ON 4L NC OS @ 98% NA+ 132 BG 147 AST 40 LDH 391 CRP 19.8 UA+ PROTEIN, GLUCOSE, BLOOD, LEUKOCYTE ESTERASE, RBC, WBC, SQUAMOUS EPITH CELLS, BACTERIA IS;DECADRON IV TYLENOL PO ONCE ZITHROMAX IV ROCEPHIN IV IVF NS BOLUS ADMITTED TO MED SURG MED SURG STATUS DCP;FROM HOME
--- NOTE | 2020-03-03 17:16 | Internal Med Progress Note ---
Subjective Physician Name Issa Botello Attending Physician Issa Botello MD Current Medications Medications (Trade) Dose Ordered Sig/Inge Route PRN Reason Start Time Stop Time Status Last Admin Dose Admin Acetaminophen (Tylenol) 650 mg Q4H PRN ORAL FEVER 03/01/20 10:00 03/31/20 09:59 Albuterol/ Ipratropium (Combivent Respimat) 1 puff Q6H PRN INH Shortness of Breath 03/01/20 10:00 03/31/20 09:59 Azithromycin 250 mg/Dextrose 275 ml @ 275 mls/hr Q24HRS IV 03/02/20 09:00 03/07/20 08:59 03/03/20 08:51 Ceftriaxone Sodium 1 gm/ Dextrose 55 ml @ 110 mls/hr Q24H IVPB 03/02/20 08:00 03/09/20 07:59 03/03/20 08:52 Dexamethasone (Decadron) 6 mg DAILY ORAL 03/02/20 09:00 03/10/20 09:01 03/03/20 08:51 Dextrose (Dextrose 50%) 25 ml Q30M PRN IV Hypoglycemia 03/01/20 10:00 05/30/20 09:59 Dextrose (Dextrose 50%) 50 ml Q30M PRN IV Hypoglycemia 03/01/20 10:00 05/30/20 09:59 Heparin Sodium (Porcine) (Heparin 5000 units/ml) 5,000 units EVERY 12 HOURS SUBQ 03/01/20 10:30 04/15/20 10:29 03/03/20 08:51 Ondansetron HCl (Zofran) 4 mg Q6H PRN IVP Nausea & Vomiting 03/01/20 10:00 03/31/20 09:59 Polyethylene Glycol (Miralax) 17 gm DAILYPRN PRN ORAL Constipation 03/01/20 10:00 03/31/20 09:59 Promethazine HCl/ Codeine (Phenergan with Codeine) 5 ml Q6H PRN ORAL cough 03/01/20 10:00 03/31/20 09:59 03/03/20 09:54 Remdesivir 100 mg/ Sodium Chloride 250 ml @ 250 mls/hr Q24H IV 03/02/20 14:00 03/05/20 14:59 03/03/20 13:57 Allergies: Coded Allergies: No Known Allergies (Unverified , 06/24/18) Subjective awake, alert, responsive, denies any chest pain, nausea or vomiting. complain about less shortness of breath and dry cough, ESR: 50. Objective Last Vital Signs Date Time Temp Pulse Resp B/P (MAP) Pulse Ox O2 Delivery O2 Flow Rate FiO2 03/03/20 12:00 97.0 91 20 130/83 (99) 94 03/03/20 09:00 Nasal Cannula 2.0 Laboratory Tests Test 03/03/20 04:10 White Blood Count 6.3 K/UL (4.8-10.8) Red Blood Count 4.47 M/UL (4.20-5.40) Hemoglobin 13.2 G/DL (12.0-16.0) Hematocrit 38.4 % (37.0-47.0) Mean Corpuscular Volume 86 FL (80-99) Mean Corpuscular Hemoglobin 29.6 PG (27.0-31.0) Mean Corpuscular Hemoglobin Concent 34.4 G/DL (32.0-36.0) Red Cell Distribution Width 13.7 % (11.6-14.8) Platelet Count 344 K/UL (150-450) Mean Platelet Volume 6.6 FL (6.5-10.1) Neutrophils (%) (Auto) 77.4 % (45.0-75.0) H Lymphocytes (%) (Auto) 14.2 % (20.0-45.0) L Monocytes (%) (Auto) 8.2 % (1.0-10.0) Eosinophils (%) (Auto) 0.0 % (0.0-3.0) Basophils (%) (Auto) 0.2 % (0.0-2.0) Erythrocyte Sedimentation Rate 50 MM/HR (0-30) H Sodium Level 141 MMOL/L (136-145) Potassium Level 4.2 MMOL/L (3.5-5.1) Chloride Level 105 MMOL/L (98-107) Carbon Dioxide Level 29 MMOL/L (21-32) Anion Gap 7 mmol/L (5-15) Blood Urea Nitrogen 18 mg/dL (7-18) Creatinine 0.6 MG/DL (0.55-1.30) Estimat Glomerular Filtration Rate > 60 mL/min (>60) Glucose Level 149 MG/DL (74-106) H Calcium Level 8.9 MG/DL (8.5-10.1) Phosphorus Level 4.0 MG/DL (2.5-4.9) Magnesium Level 2.1 MG/DL (1.8-2.4) Total Bilirubin 0.4 MG/DL (0.2-1.0) Direct Bilirubin < 0.1 MG/DL (0.0-0.3) Aspartate Amino Transf (AST/SGOT) 31 U/L (15-37) Alanine Aminotransferase (ALT/SGPT) 42 U/L (12-78) Alkaline Phosphatase 75 U/L (46-116) C-Reactive Protein, Quantitative 9.4 mg/dL (0.00-0.90) H Total Protein 7.8 G/DL (6.4-8.2) Albumin 2.9 G/DL (3.4-5.0) L Globulin 4.9 g/dL Albumin/Globulin Ratio 0.6 (1.0-2.7) L Microbiology Date/Time Source Procedure Growth Status 03/01/20 05:50 Urine,Clean Catch Urine Culture - Final Proteus Mirabilis Complete 03/01/20 05:50 Nasal Nares - Final Complete 03/01/20 05:50 Nasal Nares - Final Complete 03/01/20 05:50 Nasopharynx SARS-CoV-2 RdRp Gene Assay - Final Complete 03/01/20 05:50 Blood Blood Culture - Preliminary NO GROWTH AFTER 48 HOURS Resulted 03/01/20 05:35 Blood Blood Culture - Preliminary NO GROWTH AFTER 48 HOURS Resulted Intake and Output 03/02/20 03/03/20 18:59 06:59 Intake Total 1835 ml Balance 1835 ml IV Total 635 ml Other 1200 ml # Voids 3 # Bowel Movements 1 Objective General: No acute distress, awake and alert HEENT: NCAT, sclera anicteric, PERRL, EOMI. Neck: Supple, no significant jugular venous distention, Lungs: Fair inspiratory effort, decreased air at the bases, no Wheeze or Rales. Heart: Regular rate and rhythm, normal S1/S2, no murmurs/gallops Abdomen: soft, nontender, nondistended. Normoactive bowel sounds, Obesity. / Rectal: Refused and deferred. Extremities: No Cyanosis , clubbing or edema. Neuro: A&O x 3, Able to move all extremities Skin: warm, no rashes or lesions Psych: Normal mood and affect Assessment/Plan Assessment/Plan COVID-19 pneumonia Proteus mirabilis UTI Sepsis Obesity Plan: Abx: Rocephin and azithromycin On Decadron IV On Rendesivir IV Monitor laboratory and cultures CODE STATUS: Full code DVT prophylaxis: Heparin subcu Follow-up with pulmonary/critical care and infection disease consultations. In Med Surg Unit. Issa Botello MD Mar 03, 2020 17:16
--- NOTE | 2020-03-03 19:39 | NUR ---
NURSE NOTES: The patient is alert and stable and doesn't seem to be in any distress at this time.She is on 2 liters of oxygen via NC with Resp even and unlabored.The patient skin is clear an intact. She has a left AC 20g that is patent and asymptomatic.The bed in low and locked level, call light within easy reach and siderails up x2.Will continue to monitor as indicated.
--- NOTE | 2020-03-03 19:39 | NUR ---
NURSE HAND-OFF: Important Events on Shift:[cough] Patient Status: [stable] Diet: [reg] Pending Orders: [] Pending Results/Labs:[] Pending MD notification:[] Latest Vital Signs: Temperature 98.1 , Pulse 83 , B/P 127 /69 , Respiratory Rate 20 , O2 SAT 94 , Nasal Cannula, O2 Flow Rate 2.0 . Vital Sign Comment: [stable] Latest Darling Fall Score: 35 Fall Risk: Medium Risk Safety Measures: Call light Within Reach, Bed Alarm Zone 1, Side Rails Side Rails x2, Bed position Low and Locked. Fall Precautions: Yellow Socks Patient Fall Education Report given to [MELANIE Vásquez].
[2020-03-03 20:00] VITALS: BP 131/71
[2020-03-04] VITALS: BP 136/78
[2020-03-04 04:00] VITALS: BP 142/84
--- NOTE | 2020-03-04 07:15 | NUR ---
NURSE HAND-OFF: Important Events on Shift:Alert and stable Patient Status: Diet: Pending Orders: Pending Results/Labs: Pending MD notification: Latest Vital Signs: Temperature 97.8 , Pulse 85 , B/P 142 /84 , Respiratory Rate 18 , O2 SAT 94 , Nasal Cannula, O2 Flow Rate 2.0 . Vital Sign Comment: Latest Darling Fall Score: 35 Fall Risk: Medium Risk Safety Measures: Call light Within Reach, Bed Alarm Zone 1, Side Rails Side Rails x2, Bed position Low and Locked. Fall Precautions: Yellow Socks Patient Fall Education Report given to .
--- NOTE | 2020-03-04 07:35 | NUR ---
NURSE NOTES: Patient awake, alert x4; on Nasal Cannula 2 Liters, no sing of distress and shortness of breath; no sing of chest pain; IV LAC flushes well; side rails up x2, breaks engaged, bed at lowest position; call light within reach; will keep monitoring.
[2020-03-04 08:00] VITALS: BP 118/73
[2020-03-04] MEDS: cefTRIAXone 1 GM in D5W 55 ML IVPB SCH (08:51)
[2020-03-04] MEDS: Heparin 5000 units/ml inj SUBQ SCH ×2 (08:52→20:32)
[2020-03-04] MEDS: Azithromycin 250 MG in D5W 275 ML IV SCH (09:51)
[2020-03-04] MEDS: Promethazine/Codeine 5ml UD ORAL PRN ×2 (09:51→20:31)
[2020-03-04 10:19] LABS: BASOPHILS % (AUTO) 0.3 % (0.0-2.0); EOSINOPHILS % (AUTO) 0.1 % (0.0-3.0); HEMATOCRIT 37.5 % (37.0-47.0); HEMOGLOBIN 13.2 G/DL (12.0-16.0); LYMPHOCYTES % (AUTO) 18.4 % (20.0-45.0); MEAN CORPUSCULAR VOLUME 84 FL (80-99); NEUTROPHILS % (AUTO) 73.1 % (45.0-75.0); PLATELET COUNT 381 K/UL (150-450); RED BLOOD COUNT 4.46 M/UL (4.20-5.40); RED CELL DISTRIBUTION WIDTH 14.9 % (11.6-14.8); WHITE BLOOD COUNT 7.1 K/UL (4.8-10.8)
[2020-03-04 12:00] VITALS: BP 120/66
[2020-03-04 12:07] LABS: ANION GAP 8 mmol/L (5-15); BLOOD UREA NITROGEN 19 mg/dL (7-18); CALCIUM 8.4 MG/DL (8.5-10.1); CARBON DIOXIDE 28 MMOL/L (21-32); CHLORIDE 105 MMOL/L (98-107); CREATININE 0.7 MG/DL (0.55-1.30); POTASSIUM 3.5 MMOL/L (3.5-5.1); SODIUM 141 MMOL/L (136-145)
[2020-03-04 12:11] LABS: ALANINE AMINOTRANSFERASE 40 U/L (12-78); ALBUMIN 2.8 G/DL (3.4-5.0); ALBUMIN/GLOBULIN RATIO 0.6 (1.0-2.7); ALKALINE PHOSPHATASE 72 U/L (46-116); ASPARTATE AMINO TRANSFERASE 26 U/L (15-37); BILIRUBIN,DIRECT < 0.1 MG/DL (0.0-0.3); BILIRUBIN,TOTAL 0.4 MG/DL (0.2-1.0)
[2020-03-04] MEDS: Maintenance Dose:Remdesivir 100mg/NS 230ml x 4 Doses IV SCH ×2 (13:12)
--- NOTE | 2020-03-04 13:59 | Pulmonology Progress Note ---
Subjective ROS Limited/Unobtainable: No Constitutional: Reports: no symptoms HEENT: Repors: no symptoms Respiratory: Reports: no symptoms Allergies: Coded Allergies: No Known Allergies (Unverified , 06/24/18) Objective Last 24 Hour Vital Signs Date Time Temp Pulse Resp B/P (MAP) Pulse Ox O2 Delivery O2 Flow Rate FiO2 03/04/20 12:00 97.9 91 18 120/66 (84) 93 03/04/20 09:00 Nasal Cannula 2.0 03/04/20 08:00 97.7 72 18 118/73 (88) 98 03/04/20 04:00 97.8 85 18 142/84 (103) 94 03/04/20 00:00 98.1 79 20 136/78 (97) 94 03/03/20 21:00 Nasal Cannula 2.0 03/03/20 20:00 98.0 78 19 131/71 (91) 93 03/03/20 16:00 98.1 83 20 127/69 (88) 94 Intake and Output 0 03/03/20 03/04/20 19:00 07:00 Intake Total 360 ml Balance 360 ml Intake Oral 360 ml # Voids 3 2 General Appearance: WD/WN HEENT: normocephalic, atraumatic Respiratory: chest wall non-tender, lungs clear Breasts: no masses Cardiovascular: normal peripheral pulses, normal rate Abdomen: normal bowel sounds, soft, non tender Genitourinary: normal external genitalia Extremities: no cyanosis Skin: no rash 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 Lymphatic: no neck adenopathy Microbiology Date/Time Source Procedure Growth Status 03/02/20 17:20 Sputum Gram Stain - Final Resulted 03/02/20 17:20 Sputum Sputum Culture Pending Resulted Laboratory Tests 03/04/20 09:15: White Blood Count 7.1, Red Blood Count 4.46, Hemoglobin 13.2, Hematocrit 37.5, Mean Corpuscular Volume 84, Mean Corpuscular Hemoglobin 29.5, Mean Corpuscular Hemoglobin Concent 35.1, Red Cell Distribution Width 14.9H, Platelet Count 381, Mean Platelet Volume 6.8, Neutrophils (%) (Auto) 73.1, Lymphocytes (%) (Auto) 18.4L, Monocytes (%) (Auto) 8.0, Eosinophils (%) (Auto) 0.1, Basophils (%) (Auto) 0.3, Sodium Level 141, Potassium Level 3.5, Chloride Level 105, Carbon Dioxide Level 28, Anion Gap 8, Blood Urea Nitrogen 19H, Creatinine 0.7, Estimat Glomerular Filtration Rate > 60, Glucose Level 133H, Calcium Level 8.4L, Total Bilirubin 0.4, Direct Bilirubin < 0.1, Aspartate Amino Transf (AST/SGOT) 26, Alanine Aminotransferase (ALT/SGPT) 40, Alkaline Phosphatase 72, Total Protein 7.3, Albumin 2.8L, Globulin 4.5, Albumin/Globulin Ratio 0.6L Current Medications Medications (Trade) Dose Ordered Sig/Inge Route PRN Reason Start Time Stop Time Status Last Admin Dose Admin Acetaminophen (Tylenol) 650 mg Q4H PRN ORAL FEVER 03/01/20 10:00 03/31/20 09:59 Albuterol/ Ipratropium (Combivent Respimat) 1 puff Q6H PRN INH Shortness of Breath 03/01/20 10:00 03/31/20 09:59 Azithromycin 250 mg/Dextrose 275 ml @ 275 mls/hr Q24HRS IV 03/02/20 09:00 03/07/20 08:59 03/04/20 09:51 Ceftriaxone Sodium 1 gm/ Dextrose 55 ml @ 110 mls/hr Q24H IVPB 03/02/20 08:00 03/09/20 07:59 03/04/20 08:51 Dexamethasone (Decadron) 6 mg DAILY ORAL 03/02/20 09:00 03/10/20 09:01 03/04/20 08:50 Dextrose (Dextrose 50%) 25 ml Q30M PRN IV Hypoglycemia 03/01/20 10:00 05/30/20 09:59 Dextrose (Dextrose 50%) 50 ml Q30M PRN IV Hypoglycemia 03/01/20 10:00 05/30/20 09:59 Heparin Sodium (Porcine) (Heparin 5000 units/ml) 5,000 units EVERY 12 HOURS SUBQ 03/01/20 10:30 04/15/20 10:29 03/04/20 08:52 Ondansetron HCl (Zofran) 4 mg Q6H PRN IVP Nausea & Vomiting 03/01/20 10:00 03/31/20 09:59 Polyethylene Glycol (Miralax) 17 gm DAILYPRN PRN ORAL Constipation 03/01/20 10:00 03/31/20 09:59 Promethazine HCl/ Codeine (Phenergan with Codeine) 5 ml Q6H PRN ORAL cough 03/01/20 10:00 03/31/20 09:59 03/04/20 09:51 Remdesivir 100 mg/ Sodium Chloride 250 ml @ 250 mls/hr Q24H IV 03/02/20 14:00 03/05/20 14:59 03/04/20 13:12 Assessment/Plan Problems: (1) Multifocal pneumonia (2) COVID-19 (3) UTI (urinary tract infection) (4) Sepsis Assessment/Plan iv abx check urine cultures f/u inflammatory markers titrate fio2 to sat of 92%^ dvt prophylaxis Laya Argueta MD Mar 04, 2020 13:59
--- NOTE | 2020-03-04 15:05 | Internal Med Progress Note ---
Subjective Physician Name Issa Botello Attending Physician Issa Botello MD Current Medications Medications (Trade) Dose Ordered Sig/Inge Route PRN Reason Start Time Stop Time Status Last Admin Dose Admin Acetaminophen (Tylenol) 650 mg Q4H PRN ORAL FEVER 03/01/20 10:00 03/31/20 09:59 Albuterol/ Ipratropium (Combivent Respimat) 1 puff Q6H PRN INH Shortness of Breath 03/01/20 10:00 03/31/20 09:59 Azithromycin 250 mg/Dextrose 275 ml @ 275 mls/hr Q24HRS IV 03/02/20 09:00 03/07/20 08:59 03/04/20 09:51 Ceftriaxone Sodium 1 gm/ Dextrose 55 ml @ 110 mls/hr Q24H IVPB 03/02/20 08:00 03/09/20 07:59 03/04/20 08:51 Dexamethasone (Decadron) 6 mg DAILY ORAL 03/02/20 09:00 03/10/20 09:01 03/04/20 08:50 Dextrose (Dextrose 50%) 25 ml Q30M PRN IV Hypoglycemia 03/01/20 10:00 05/30/20 09:59 Dextrose (Dextrose 50%) 50 ml Q30M PRN IV Hypoglycemia 03/01/20 10:00 05/30/20 09:59 Heparin Sodium (Porcine) (Heparin 5000 units/ml) 5,000 units EVERY 12 HOURS SUBQ 03/01/20 10:30 04/15/20 10:29 03/04/20 08:52 Ondansetron HCl (Zofran) 4 mg Q6H PRN IVP Nausea & Vomiting 03/01/20 10:00 03/31/20 09:59 Polyethylene Glycol (Miralax) 17 gm DAILYPRN PRN ORAL Constipation 03/01/20 10:00 03/31/20 09:59 Promethazine HCl/ Codeine (Phenergan with Codeine) 5 ml Q6H PRN ORAL cough 03/01/20 10:00 03/31/20 09:59 03/04/20 09:51 Remdesivir 100 mg/ Sodium Chloride 250 ml @ 250 mls/hr Q24H IV 03/02/20 14:00 03/05/20 14:59 03/04/20 13:12 Allergies: Coded Allergies: No Known Allergies (Unverified , 06/24/18) Subjective awake, alert, responsive, denies any chest pain, nausea or vomiting. complain about less shortness of breath and dry cough. Objective Last Vital Signs Date Time Temp Pulse Resp B/P (MAP) Pulse Ox O2 Delivery O2 Flow Rate FiO2 03/04/20 12:00 97.9 91 18 120/66 (84) 93 03/04/20 09:00 Nasal Cannula 2.0 Laboratory Tests Test 03/04/20 09:15 White Blood Count 7.1 K/UL (4.8-10.8) Red Blood Count 4.46 M/UL (4.20-5.40) Hemoglobin 13.2 G/DL (12.0-16.0) Hematocrit 37.5 % (37.0-47.0) Mean Corpuscular Volume 84 FL (80-99) Mean Corpuscular Hemoglobin 29.5 PG (27.0-31.0) Mean Corpuscular Hemoglobin Concent 35.1 G/DL (32.0-36.0) Red Cell Distribution Width 14.9 % (11.6-14.8) H Platelet Count 381 K/UL (150-450) Mean Platelet Volume 6.8 FL (6.5-10.1) Neutrophils (%) (Auto) 73.1 % (45.0-75.0) Lymphocytes (%) (Auto) 18.4 % (20.0-45.0) L Monocytes (%) (Auto) 8.0 % (1.0-10.0) Eosinophils (%) (Auto) 0.1 % (0.0-3.0) Basophils (%) (Auto) 0.3 % (0.0-2.0) Sodium Level 141 MMOL/L (136-145) Potassium Level 3.5 MMOL/L (3.5-5.1) Chloride Level 105 MMOL/L (98-107) Carbon Dioxide Level 28 MMOL/L (21-32) Anion Gap 8 mmol/L (5-15) Blood Urea Nitrogen 19 mg/dL (7-18) H Creatinine 0.7 MG/DL (0.55-1.30) Estimat Glomerular Filtration Rate > 60 mL/min (>60) Glucose Level 133 MG/DL (74-106) H Calcium Level 8.4 MG/DL (8.5-10.1) L Total Bilirubin 0.4 MG/DL (0.2-1.0) Direct Bilirubin < 0.1 MG/DL (0.0-0.3) Aspartate Amino Transf (AST/SGOT) 26 U/L (15-37) Alanine Aminotransferase (ALT/SGPT) 40 U/L (12-78) Alkaline Phosphatase 72 U/L (46-116) Total Protein 7.3 G/DL (6.4-8.2) Albumin 2.8 G/DL (3.4-5.0) L Globulin 4.5 g/dL Albumin/Globulin Ratio 0.6 (1.0-2.7) L Microbiology Date/Time Source Procedure Growth Status 03/02/20 17:20 Sputum Gram Stain - Final Resulted 03/02/20 17:20 Sputum Sputum Culture Pending Resulted Intake and Output 03/03/20 03/04/20 19:00 07:00 Intake Total 360 ml Balance 360 ml Intake Oral 360 ml # Voids 3 2 Objective General: No acute distress, awake and alert HEENT: NCAT, sclera anicteric, PERRL, EOMI. Neck: Supple, no significant jugular venous distention, Lungs: Fair inspiratory effort, decreased air at the bases, no Wheeze or Rales. Heart: Regular rate and rhythm, normal S1/S2, no murmurs/gallops Abdomen: soft, nontender, nondistended. Normoactive bowel sounds, Obesity. / Rectal: Refused and deferred. Extremities: No Cyanosis , clubbing or edema. Neuro: A&O x 3, Able to move all extremities Skin: warm, no rashes or lesions Psych: Normal mood and affect Assessment/Plan Assessment/Plan COVID-19 pneumonia Proteus mirabilis UTI Sepsis Obesity Plan: Abx: Rocephin and azithromycin On Decadron IV On Rendesivir IV Monitor laboratory and cultures CODE STATUS: Full code DVT prophylaxis: Heparin subcu Follow-up with pulmonary/critical care and infection disease consultations. In Med Surg Unit. Issa Botello MD Mar 04, 2020 15:05
[2020-03-04 16:00] VITALS: BP 118/73
--- NOTE | 2020-03-04 18:57 | NUR ---
NURSE HAND-OFF: Important Events on Shift:Recephin, Azithromycin and PRN Codeine and other scheduled medications given; Patient Status: Diet: Pending Orders: Pending Results/Labs: Pending MD notification: Latest Vital Signs: Temperature 97.0 , Pulse 72 , B/P 118 /73 , Respiratory Rate 18 , O2 SAT 96 , Nasal Cannula, O2 Flow Rate 2.0 . Vital Sign Comment: Latest Darling Fall Score: 35 Fall Risk: Medium Risk Safety Measures: Call light Within Reach, Bed Alarm Zone 1, Side Rails Side Rails x2, Bed position Low and Locked. Fall Precautions: Yellow Socks Patient Fall Education Report given to .
--- NOTE | 2020-03-04 19:52 | NUR ---
NURSE NOTES: Pt. received from MELANIE Reid. Pt. AAOx4, on 2L NC, breathing even and unlabored, no indications of respiratory distress, no complaints of pain. IV left AC 20g intact and patent. Bed low and locked, side rails x2 up, bed alarm active, and call light in reach.
[2020-03-04 20:00] VITALS: BP 119/81
[2020-03-05] VITALS: BP 129/74
--- NOTE | 2020-03-05 03:40 | NUR ---
NURSE NOTES: Post-fall care plan mistakenly added to this pt's chart, please disregard.
[2020-03-05 04:00] VITALS: BP 124/77
--- NOTE | 2020-03-05 06:54 | NUR ---
NURSE HAND-OFF: Important Events on Shift:[pt. stable overnight, reports feeling better and wanting to go home. PRN cough medication given one time] Patient Status: stable Diet: regular Pending Orders: na Pending Results/Labs:na Pending MD notification:pt. wants to be discharged home Latest Vital Signs: Temperature 97.5 , Pulse 63 , B/P 124 /77 , Respiratory Rate 20 , O2 SAT 96 , Nasal Cannula, O2 Flow Rate 2.0 . Vital Sign Comment: stable Latest Darling Fall Score: 35 Fall Risk: Medium Risk Safety Measures: Call light Within Reach, Bed Alarm Zone 1, Side Rails Side Rails x2, Bed position Low and Locked. Fall Precautions: Yellow Socks Patient Fall Education Report given to .
--- NOTE | 2020-03-05 07:24 | NUR ---
HAND-OFF: Report given to MELANIE Gonsales.
[2020-03-05 07:49] LABS: BASOPHILS % (AUTO) 0.5 % (0.0-2.0); EOSINOPHILS % (AUTO) 0.1 % (0.0-3.0); HEMATOCRIT 38.3 % (37.0-47.0); HEMOGLOBIN 12.8 G/DL (12.0-16.0); LYMPHOCYTES % (AUTO) 16.6 % (20.0-45.0); MEAN CORPUSCULAR VOLUME 87 FL (80-99); MONOCYTES % (AUTO) 10.1 % (1.0-10.0); NEUTROPHILS % (AUTO) 72.8 % (45.0-75.0); PLATELET COUNT 398 K/UL (150-450); RED BLOOD COUNT 4.39 M/UL (4.20-5.40); RED CELL DISTRIBUTION WIDTH 13.8 % (11.6-14.8); WHITE BLOOD COUNT 7.1 K/UL (4.8-10.8)
[2020-03-05 08:00] VITALS: BP 113/75
[2020-03-05 08:06] LABS: PHOSPHORUS 3.8 MG/DL (2.5-4.9)
[2020-03-05] MEDS: cefTRIAXone 1 GM in D5W 55 ML IVPB SCH (08:08)
--- NOTE | 2020-03-05 08:18 | Infectious Diseases Prog Note ---
Assessment/Plan 54yo F who p/w: COVID pna Acute hypoxia 2/2 COVID Normal WBC Lymphopenia Febrile to 102.2 03/01 COVID+ BCx NTD UA 10-15 WBC, UCx >100k P.mirabilis S-CTX Resp cx nl norma CXR: BL pna Flu neg 03/05 CXR: Slightly improved infiltrates, over 4 days Plan: Cont RDV #5/ Cont dex 6mg daily #07/16 Cont CTX/azithro #5/ OK to d/c home after dose of RDV today off abx. If O2 sat <94% on RA then needs home O2 and should finish 10 day steroid course at home. If O2 sat >94% on RA then ok to d/c home off oxygen and off steroids Needs home isolation for COVID for 10 days from diagnosis through Mar 10 Monitor CBC/CMP Monitor resp status Monitor temp curve, hemodynamics D/w RN Thank you for this consult. [facility] will continue to follow. Subjective Allergies: Coded Allergies: No Known Allergies (Unverified , 06/24/18) AF NAD on 2L NC WBC wnl Overall feeling much better Objective Last 24 Hour Vital Signs Date Time Temp Pulse Resp B/P (MAP) Pulse Ox O2 Delivery O2 Flow Rate FiO2 03/05/20 04:00 97.5 63 20 124/77 (93) 96 03/05/20 00:00 96.8 60 20 129/74 (92) 98 03/04/20 21:00 Nasal Cannula 2.0 03/04/20 20:00 97.5 79 20 119/81 (94) 98 03/04/20 16:00 97.0 72 18 118/73 (88) 96 03/04/20 12:00 97.9 91 18 120/66 (84) 93 03/04/20 09:00 Nasal Cannula 2.0 Height (Feet): 5 Height (Inches): 6.00 Weight (Pounds): 190 Gen: NAD HEENT: NCAT Pulm: BL chest rise Abd: Non-distended Ext: No c/c/e Skin: No visible rashes Neuro: Awake Microbiology Date/Time Source Procedure Growth Status 03/02/20 17:20 Sputum Gram Stain - Final Complete 03/02/20 17:20 Sputum Culture - Final Vijaya Albicans Usual Respiratory Norma Complete Laboratory Tests Test 03/04/20 09:15 03/05/20 04:50 White Blood Count 7.1 K/UL (4.8-10.8) 7.1 K/UL (4.8-10.8) Red Blood Count 4.46 M/UL (4.20-5.40) 4.39 M/UL (4.20-5.40) Hemoglobin 13.2 G/DL (12.0-16.0) 12.8 G/DL (12.0-16.0) Hematocrit 37.5 % (37.0-47.0) 38.3 % (37.0-47.0) Mean Corpuscular Volume 84 FL (80-99) 87 FL (80-99) Mean Corpuscular Hemoglobin 29.5 PG (27.0-31.0) 29.1 PG (27.0-31.0) Mean Corpuscular Hemoglobin Concent 35.1 G/DL (32.0-36.0) 33.3 G/DL (32.0-36.0) Red Cell Distribution Width 14.9 % (11.6-14.8) H 13.8 % (11.6-14.8) Platelet Count 381 K/UL (150-450) 398 K/UL (150-450) Mean Platelet Volume 6.8 FL (6.5-10.1) 6.7 FL (6.5-10.1) Neutrophils (%) (Auto) 73.1 % (45.0-75.0) 72.8 % (45.0-75.0) Lymphocytes (%) (Auto) 18.4 % (20.0-45.0) L 16.6 % (20.0-45.0) L Monocytes (%) (Auto) 8.0 % (1.0-10.0) 10.1 % (1.0-10.0) H Eosinophils (%) (Auto) 0.1 % (0.0-3.0) 0.1 % (0.0-3.0) Basophils (%) (Auto) 0.3 % (0.0-2.0) 0.5 % (0.0-2.0) Sodium Level 141 MMOL/L (136-145) Pending Potassium Level 3.5 MMOL/L (3.5-5.1) Pending Chloride Level 105 MMOL/L (98-107) Pending Carbon Dioxide Level 28 MMOL/L (21-32) Pending Anion Gap 8 mmol/L (5-15) Blood Urea Nitrogen 19 mg/dL (7-18) H Pending Creatinine 0.7 MG/DL (0.55-1.30) Pending Estimat Glomerular Filtration Rate > 60 mL/min (>60) Pending Glucose Level 133 MG/DL (74-106) H Pending Calcium Level 8.4 MG/DL (8.5-10.1) L Pending Total Bilirubin 0.4 MG/DL (0.2-1.0) Pending Direct Bilirubin < 0.1 MG/DL (0.0-0.3) Pending Aspartate Amino Transf (AST/SGOT) 26 U/L (15-37) Pending Alanine Aminotransferase (ALT/SGPT) 40 U/L (12-78) Pending Alkaline Phosphatase 72 U/L (46-116) Pending Total Protein 7.3 G/DL (6.4-8.2) Pending Albumin 2.8 G/DL (3.4-5.0) L Pending Globulin 4.5 g/dL Pending Albumin/Globulin Ratio 0.6 (1.0-2.7) L Erythrocyte Sedimentation Rate Pending Phosphorus Level 3.8 MG/DL (2.5-4.9) Magnesium Level 2.2 MG/DL (1.8-2.4) C-Reactive Protein, Quantitative 2.4 mg/dL (0.00-0.90) H Current Medications Medications (Trade) Dose Ordered Sig/Inge Route PRN Reason Start Time Stop Time Status Last Admin Dose Admin Acetaminophen (Tylenol) 650 mg Q4H PRN ORAL FEVER 03/01/20 10:00 03/31/20 09:59 Albuterol/ Ipratropium (Combivent Respimat) 1 puff Q6H PRN INH Shortness of Breath 03/01/20 10:00 03/31/20 09:59 Azithromycin 250 mg/Dextrose 275 ml @ 275 mls/hr Q24HRS IV 03/02/20 09:00 03/07/20 08:59 03/04/20 09:51 Ceftriaxone Sodium 1 gm/ Dextrose 55 ml @ 110 mls/hr Q24H IVPB 03/02/20 08:00 03/09/20 07:59 03/05/20 08:08 Dexamethasone (Decadron) 6 mg DAILY ORAL 03/02/20 09:00 03/10/20 09:01 03/04/20 08:50 Dextrose (Dextrose 50%) 25 ml Q30M PRN IV Hypoglycemia 03/01/20 10:00 05/30/20 09:59 Dextrose (Dextrose 50%) 50 ml Q30M PRN IV Hypoglycemia 03/01/20 10:00 05/30/20 09:59 Heparin Sodium (Porcine) (Heparin 5000 units/ml) 5,000 units EVERY 12 HOURS SUBQ 03/01/20 10:30 04/15/20 10:29 03/04/20 20:32 Ondansetron HCl (Zofran) 4 mg Q6H PRN IVP Nausea & Vomiting 03/01/20 10:00 03/31/20 09:59 Polyethylene Glycol (Miralax) 17 gm DAILYPRN PRN ORAL Constipation 03/01/20 10:00 03/31/20 09:59 Promethazine HCl/ Codeine (Phenergan with Codeine) 5 ml Q6H PRN ORAL cough 03/01/20 10:00 03/31/20 09:59 03/04/20 20:31 Remdesivir 100 mg/ Sodium Chloride 250 ml @ 250 mls/hr Q24H IV 03/02/20 14:00 03/05/20 14:59 03/04/20 13:12 Nohemi Marcelino M.D. Mar 05, 2020 08:18
[2020-03-05] MEDS: Heparin 5000 units/ml inj SUBQ SCH (09:00)
[2020-03-05 09:28] LABS: ALANINE AMINOTRANSFERASE 42 U/L (12-78); ALBUMIN 2.7 G/DL (3.4-5.0); ALBUMIN/GLOBULIN RATIO 0.6 (1.0-2.7); ALKALINE PHOSPHATASE 67 U/L (46-116); ANION GAP 7 mmol/L (5-15); ASPARTATE AMINO TRANSFERASE 29 U/L (15-37); BILIRUBIN,DIRECT < 0.1 MG/DL (0.0-0.3); BILIRUBIN,TOTAL 0.3 MG/DL (0.2-1.0); BLOOD UREA NITROGEN 17 mg/dL (7-18); CALCIUM 8.5 MG/DL (8.5-10.1); CARBON DIOXIDE 28 MMOL/L (21-32); CHLORIDE 105 MMOL/L (98-107); CREATININE 0.6 MG/DL (0.55-1.30); POTASSIUM 4.2 MMOL/L (3.5-5.1); SODIUM 140 MMOL/L (136-145)
[2020-03-05] MEDS: Azithromycin 250 MG in D5W 275 ML IV SCH (09:46)
--- NOTE | 2020-03-05 09:50 | Diagnostic Imaging Report ---
Indication: Dyspnea Technique: One view of the chest Comparison: none Findings: Interim slight improvement of previously demonstrated bilateral infiltrates. There is some perihilar atelectasis on the right which appears similar to the previous exam. Impression: Slightly improved infiltrates, over 4 days
[2020-03-05 12:00] VITALS: BP 118/69
[2020-03-05] MEDS ORDERED: DECADRON6 MG PO (12:12)
--- NOTE | 2020-03-05 12:14 | Pulmonology Progress Note ---
Subjective ROS Limited/Unobtainable: No Constitutional: Reports: no symptoms HEENT: Repors: no symptoms Respiratory: Reports: no symptoms Allergies: Coded Allergies: No Known Allergies (Unverified , 06/24/18) Objective Last 24 Hour Vital Signs Date Time Temp Pulse Resp B/P (MAP) Pulse Ox O2 Delivery O2 Flow Rate FiO2 03/05/20 09:00 Nasal Cannula 2.0 03/05/20 08:00 98.2 61 18 113/75 (88) 96 03/05/20 04:00 97.5 63 20 124/77 (93) 96 03/05/20 00:00 96.8 60 20 129/74 (92) 98 03/04/20 21:00 Nasal Cannula 2.0 03/04/20 20:00 97.5 79 20 119/81 (94) 98 03/04/20 16:00 97.0 72 18 118/73 (88) 96 Intake and Output 03/04/20 03/05/20 18:59 06:59 Intake Total 1035 ml 500 ml Balance 1035 ml 500 ml Intake Oral 400 ml 500 ml IV Total 635 ml # Voids 3 2 General Appearance: WD/WN HEENT: normocephalic, atraumatic Respiratory: chest wall non-tender, lungs clear Breasts: no masses Cardiovascular: normal peripheral pulses, normal rate Abdomen: normal bowel sounds, soft, non tender Genitourinary: normal external genitalia Extremities: no cyanosis Skin: no rash Neurologic: headrig sawyer II-XII grossly normal Lymphatic: no neck adenopathy Microbiology Date/Time Source Procedure Growth Status 03/02/20 17:20 Sputum Gram Stain - Final Complete 03/02/20 17:20 Sputum Culture - Final Vijaya Albicans Usual Respiratory Kate Complete Laboratory Tests 03/05/20 04:50: White Blood Count 7.1, Red Blood Count 4.39, Hemoglobin 12.8, Hematocrit 38.3, Mean Corpuscular Volume 87, Mean Corpuscular Hemoglobin 29.1, Mean Corpuscular Hemoglobin Concent 33.3, Red Cell Distribution Width 13.8, Platelet Count 398, Mean Platelet Volume 6.7, Neutrophils (%) (Auto) 72.8, Lymphocytes (%) (Auto) 16.6L, Monocytes (%) (Auto) 10.1H, Eosinophils (%) (Auto) 0.1, Basophils (%) (Auto) 0.5, Erythrocyte Sedimentation Rate 31H, Sodium Level 140, Potassium Level 4.2, Chloride Level 105, Carbon Dioxide Level 28, Anion Gap 7, Blood Urea Nitrogen 17, Creatinine 0.6, Estimat Glomerular Filtration Rate > 60, Glucose Level 112H, Calcium Level 8.5, Phosphorus Level 3.8, Magnesium Level 2.2, Total Bilirubin 0.3, Direct Bilirubin < 0.1, Aspartate Amino Transf (AST/SGOT) 29, Alanine Aminotransferase (ALT/SGPT) 42, Alkaline Phosphatase 67, C-Reactive Protein, Quantitative 2.4H, Total Protein 6.9, Albumin 2.7L, Globulin 4.2, Albumin/Globulin Ratio 0.6L Current Medications Medications (Trade) Dose Ordered Sig/Inge Route PRN Reason Start Time Stop Time Status Last Admin Dose Admin Acetaminophen (Tylenol) 650 mg Q4H PRN ORAL FEVER 03/01/20 10:00 03/31/20 09:59 Albuterol/ Ipratropium (Combivent Respimat) 1 puff Q6H PRN INH Shortness of Breath 03/01/20 10:00 03/31/20 09:59 Azithromycin 250 mg/Dextrose 275 ml @ 275 mls/hr Q24HRS IV 03/02/20 09:00 03/07/20 08:59 03/05/20 09:46 Ceftriaxone Sodium 1 gm/ Dextrose 55 ml @ 110 mls/hr Q24H IVPB 03/02/20 08:00 03/09/20 07:59 03/05/20 08:08 Dexamethasone (Decadron) 6 mg DAILY ORAL 03/02/20 09:00 03/10/20 09:01 03/05/20 10:23 Dextrose (Dextrose 50%) 25 ml Q30M PRN IV Hypoglycemia 03/01/20 10:00 05/30/20 09:59 Dextrose (Dextrose 50%) 50 ml Q30M PRN IV Hypoglycemia 03/01/20 10:00 05/30/20 09:59 Heparin Sodium (Porcine) (Heparin 5000 units/ml) 5,000 units EVERY 12 HOURS SUBQ 03/01/20 10:30 04/15/20 10:29 03/05/20 09:00 Ondansetron HCl (Zofran) 4 mg Q6H PRN IVP Nausea & Vomiting 03/01/20 10:00 03/31/20 09:59 Polyethylene Glycol (Miralax) 17 gm DAILYPRN PRN ORAL Constipation 03/01/20 10:00 03/31/20 09:59 Promethazine HCl/ Codeine (Phenergan with Codeine) 5 ml Q6H PRN ORAL cough 03/01/20 10:00 03/31/20 09:59 03/04/20 20:31 Remdesivir 100 mg/ Sodium Chloride 250 ml @ 250 mls/hr Q24H IV 03/02/20 14:00 03/05/20 14:59 03/04/20 13:12 Assessment/Plan Problems: (1) Multifocal pneumonia (2) COVID-19 (3) UTI (urinary tract infection) (4) Sepsis Assessment/Plan finishing antiviral on Decadrone check urine cultures f/u inflammatory markers titrate fio2 to sat of 92%^ dvt prophylaxis Laya Argueta MD Mar 05, 2020 12:14
--- NOTE | 2020-03-05 12:30 | NUR ---
NURSE NOTES: No signs of distress or SOB, patient states that she feels better. Vital signs normal, saturation 93% on room air.
--- NOTE | 2020-03-05 13:52 | NUR ---
NURSE NOTES: Pt will be discharged after Remdezevir IV administration. PT on room air 94%
[2020-03-05] MEDS: Maintenance Dose:Remdesivir 100mg/NS 230ml x 4 Doses IV SCH ×2 (14:12)
[2020-03-05 15:53] VITALS: BP 121/70
--- NOTE | 2020-03-05 15:54 | Internal Med Progress Note ---
Subjective Physician Name Issa Botello Attending Physician Issa Botello MD Current Medications Medications (Trade) Dose Ordered Sig/Inge Route PRN Reason Start Time Stop Time Status Last Admin Dose Admin Acetaminophen (Tylenol) 650 mg Q4H PRN ORAL FEVER 03/01/20 10:00 03/31/20 09:59 Albuterol/ Ipratropium (Combivent Respimat) 1 puff Q6H PRN INH Shortness of Breath 03/01/20 10:00 03/31/20 09:59 Azithromycin 250 mg/Dextrose 275 ml @ 275 mls/hr Q24HRS IV 03/02/20 09:00 03/07/20 08:59 03/05/20 09:46 Ceftriaxone Sodium 1 gm/ Dextrose 55 ml @ 110 mls/hr Q24H IVPB 03/02/20 08:00 03/09/20 07:59 03/05/20 08:08 Dexamethasone (Decadron) 6 mg DAILY ORAL 03/02/20 09:00 03/10/20 09:01 03/05/20 10:23 Dextrose (Dextrose 50%) 25 ml Q30M PRN IV Hypoglycemia 03/01/20 10:00 05/30/20 09:59 Dextrose (Dextrose 50%) 50 ml Q30M PRN IV Hypoglycemia 03/01/20 10:00 05/30/20 09:59 Heparin Sodium (Porcine) (Heparin 5000 units/ml) 5,000 units EVERY 12 HOURS SUBQ 03/01/20 10:30 04/15/20 10:29 03/05/20 09:00 Ondansetron HCl (Zofran) 4 mg Q6H PRN IVP Nausea & Vomiting 03/01/20 10:00 03/31/20 09:59 Polyethylene Glycol (Miralax) 17 gm DAILYPRN PRN ORAL Constipation 03/01/20 10:00 03/31/20 09:59 Promethazine HCl/ Codeine (Phenergan with Codeine) 5 ml Q6H PRN ORAL cough 03/01/20 10:00 03/31/20 09:59 03/04/20 20:31 Allergies: Coded Allergies: No Known Allergies (Unverified , 06/24/18) Subjective awake, alert, responsive, denies any chest pain, nausea or vomiting. complain about less shortness of breath and dry cough. Objective Last Vital Signs Date Time Temp Pulse Resp B/P (MAP) Pulse Ox O2 Delivery O2 Flow Rate FiO2 03/05/20 12:00 97.7 78 18 118/69 (85) 93 03/05/20 09:00 Nasal Cannula 2.0 Laboratory Tests Test 03/05/20 04:50 White Blood Count 7.1 K/UL (4.8-10.8) Red Blood Count 4.39 M/UL (4.20-5.40) Hemoglobin 12.8 G/DL (12.0-16.0) Hematocrit 38.3 % (37.0-47.0) Mean Corpuscular Volume 87 FL (80-99) Mean Corpuscular Hemoglobin 29.1 PG (27.0-31.0) Mean Corpuscular Hemoglobin Concent 33.3 G/DL (32.0-36.0) Red Cell Distribution Width 13.8 % (11.6-14.8) Platelet Count 398 K/UL (150-450) Mean Platelet Volume 6.7 FL (6.5-10.1) Neutrophils (%) (Auto) 72.8 % (45.0-75.0) Lymphocytes (%) (Auto) 16.6 % (20.0-45.0) L Monocytes (%) (Auto) 10.1 % (1.0-10.0) H Eosinophils (%) (Auto) 0.1 % (0.0-3.0) Basophils (%) (Auto) 0.5 % (0.0-2.0) Erythrocyte Sedimentation Rate 31 MM/HR (0-30) H Sodium Level 140 MMOL/L (136-145) Potassium Level 4.2 MMOL/L (3.5-5.1) Chloride Level 105 MMOL/L (98-107) Carbon Dioxide Level 28 MMOL/L (21-32) Anion Gap 7 mmol/L (5-15) Blood Urea Nitrogen 17 mg/dL (7-18) Creatinine 0.6 MG/DL (0.55-1.30) Estimat Glomerular Filtration Rate > 60 mL/min (>60) Glucose Level 112 MG/DL (74-106) H Calcium Level 8.5 MG/DL (8.5-10.1) Phosphorus Level 3.8 MG/DL (2.5-4.9) Magnesium Level 2.2 MG/DL (1.8-2.4) Total Bilirubin 0.3 MG/DL (0.2-1.0) Direct Bilirubin < 0.1 MG/DL (0.0-0.3) Aspartate Amino Transf (AST/SGOT) 29 U/L (15-37) Alanine Aminotransferase (ALT/SGPT) 42 U/L (12-78) Alkaline Phosphatase 67 U/L (46-116) C-Reactive Protein, Quantitative 2.4 mg/dL (0.00-0.90) H Total Protein 6.9 G/DL (6.4-8.2) Albumin 2.7 G/DL (3.4-5.0) L Globulin 4.2 g/dL Albumin/Globulin Ratio 0.6 (1.0-2.7) L Microbiology Date/Time Source Procedure Growth Status 03/02/20 17:20 Sputum Gram Stain - Final Complete 03/02/20 17:20 Sputum Culture - Final Vijaya Albicans Usual Respiratory Kate Complete Intake and Output 03/04/20 03/05/20 19:00 07:00 Intake Total 1035 ml 500 ml Balance 1035 ml 500 ml Intake Oral 400 ml 500 ml IV Total 635 ml # Voids 3 2 Objective General: No acute distress, awake and alert HEENT: NCAT, sclera anicteric, PERRL, EOMI. Neck: Supple, no significant jugular venous distention, Lungs: Fair inspiratory effort, decreased air at the bases, no Wheeze or Rales. Heart: Regular rate and rhythm, normal S1/S2, no murmurs/gallops Abdomen: soft, nontender, nondistended. Normoactive bowel sounds, Obesity. / Rectal: Refused and deferred. Extremities: No Cyanosis , clubbing or edema. Neuro: A&O x 3, Able to move all extremities Skin: warm, no rashes or lesions Psych: Normal mood and affect Assessment/Plan Assessment/Plan COVID-19 pneumonia Proteus mirabilis UTI Sepsis Obesity Plan: Abx: Rocephin and azithromycin On Decadron IV On Rendesivir IV Monitor laboratory and cultures CODE STATUS: Full code DVT prophylaxis: Heparin subcu Follow-up with pulmonary/critical care and infection disease consultations. In Med Surg Unit. DC Home soon. Issa Botello MD Mar 05, 2020 15:54
[2020-03-05] MEDS: Promethazine/Codeine 5ml UD ORAL PRN (16:53)
--- NOTE | 2020-03-05 17:49 | NUR ---
DISCHARGE NOTE: Patient is discharged home by private car (spouse) in stable condition. Belongings checked, IV line removed, no inflammation or infection noted.Pt was instructed on medication regimen (dexamethazone provided), activity (5 days on covid isolation), diet. Covid printed instructions given. Pt will follow up with PCP.
--- NOTE | 2020-03-06 18:09 | Discharge Summary ---
Discharge Summary Discharge Summary _ DATE OF ADMISSION: 03/01/2020 DATE OF DISCHARGE: 03/05/2020 DISCHARGED BY: Dr. Botello REASON FOR ADMISSION: 54 years old female with past medical history of obesity and hysterectomy, presented to emergency department complaining of fever and shortness of breath for the past 6 days. Patient reported nonproductive cough associated with headache, fatigue and general body aches. Patient was taken Tylenol and Motrin without much relief. Patient was complaining of diaphoresis and shortness of breath. She denied chest pain, nausea, vomiting, diarrhea. Upon evaluation patient was febrile with temperature of 102 Laboratory work-up revealed no leukocytosis. Stable renal parameters and electrolytes. Troponin negative. Lactic acid 1.3. Urinalysis revealed evidence of urinary tract infection. Rapid COVID-19 was positive. Influenza screen test was negative. Chest x-ray demonstrated bilateral infiltrates , likely multifocal pneumonia. D-dimer 0.47, ferritin 231, LDH 391, CRP 19.8. In emergency department patient received Decadron , empiric antibiotic, fluids , antitussive and admitted for further management. CONSULTANTS: pulmonary Dr. Kendall LLOYD specialist Dr. Marcelino [facility] COURSE: Patient admitted to isolation room. Supplemental oxygen provided and titrated to keep pulse oximetry above 92%. Anticoagulation with Heparin /prophylactic dose -provided. Patient received remdesivir with close monitoring of renal parameters and LFT. Patient was followed -up with inflammatory markers. Patient provided with antibiotic. Blood culture came back negative. Urine culture revealed Proteus. Sputum culture showed Vijaya. Patient completed remdesivir and antibiotics while in the hospital. Fevers resolved. Pulse oximetry stable on room air prior to discharge. Patient will need to continue with self-isolation for total of 10 days. Patient clinically stabilized and was ready for discharge. Patient discharged on oral Decadron to complete total course of 10 days. FINAL DIAGNOSES: Sepsis COVID-19 pneumonia Proteus mirabilis UTI Obesity Acute hypoxia secondary to COVID pneumonia DISCHARGE MEDICATIONS: See Medication Reconciliation list. DISCHARGE INSTRUCTIONS: Patient was discharged home. Follow-up with a primary care provider in 1 week. I have been assigned to dictate discharge summary for this account. I was not involved in the patient's management. Saniya Coley NP Mar 06, 2020 18:09
--- NOTE | 2020-03-07 11:01 | NUR ---
INSURANCE DC SUMMARY/INSTRUCTIONS (03/04-03/05) FAXED TO TONNY Velez [phone]
== END 2020-03-05 17:45 | disposition home or self-care (01) | DRG 720 ==
LOC: EMR 06:00 → 4E 07:40 → EDBEDREQ 09:14
DX: A41.89 Other specified sepsis (principal); U07.1 COVID-19; J12.89 Other viral pneumonia; R09.02 Hypoxemia; N39.0 Urinary tract infection, site not specified; E66.01 Morbid (severe) obesity due to excess calories; B96.4 Proteus (mirabilis) (morganii) as the cause of diseases classified elsewhere
CPT/HCPCS: 36415; 71045; 80053; 80069; 81003; 82248; 82550; 82553; 82728; 83605; 83615; 83690; 83735; 83880; 84100; 84484; 85025; 85379; 85610; 85651; 85730; 86140; 86710; 87040; 87070; 87086; 87181; 87205; 93005; 96361; 96365; 96367; 96375; 99291; J3490; J7030; U0002